=== PATIENT | male | born 1955 | race Caucasian/White ===

== ENCOUNTER 2017-07-08 07:18 | Emergency (ER) | payer BC, MEDICARE ==
[2017-07-08] MEDS ORDERED: NS 0.9% 1000 ML* 1,000 ML IV ONE (07:37)
[2017-07-08] MEDS ORDERED: Ketorolac INJ* 30 MG/ML 1 ML VIAL IV ONE (07:37)
[2017-07-08] MEDS ORDERED: Ondansetron INJ* 2 MG/ML VIAL IV ONE (07:38)
[2017-07-08 08:24] LABS: Hematocrit 42 % (42-52); Hemoglobin 13.9 g/dl (14.0-18.0); Mean Corpuscular HGB Conc 33 g/dl (31-36); Mean Corpuscular Hemoglobin 29 pg (27-31); Mean Corpuscular Volume 88 fL (80-94); Mean Platelet Volume 10 um3 (7.4-10.4); Red Blood Count 4.84 10^6/ul (4.0-5.4); Red Cell Distribution Width 15 % (10.5-15); White Blood Count 10.9 10^3/ul (3.5-10.8)
[2017-07-08 08:32] LABS: ALT 13 U/L (7-52); AST 13 U/L (13-39); Albumin 4.3 g/dL (3.2-5.2); Alkaline Phosphatase 124 U/L (34-104); Anion Gap 8 mmol/L (2-11); BUN/Creatinine Ratio 17.4 (8-20); Blood Urea Nitrogen 15 mg/dL (6-24); C Reactive Protein < 1.00 mg/L (< 5.00); CO2 Carbon Dioxide 28 mmol/L (22-32); Calcium 9.8 mg/dL (8.6-10.3); Chloride 102 mmol/L (101-111); Creatine Kinase 95 U/L (10-223); EGFR African American 115.5 (>60); EGFR Non-African American 89.8 (>60); Globulin 2.9 g/dL (2-4); Glucose 178 mg/dL (70-100); Potassium 3.2 mmol/L (3.5-5.0); Sodium 138 mmol/L (133-145); Total Protein 7.2 g/dL (6.4-8.9)
--- NOTE | 2017-07-08 08:35 | RAD ---
CLINICAL HISTORY: Left flank pain. Relevant surgical history includes appendectomy. COMPARISON: CT abdomen pelvis dated February 18, [address] chest abdomen pelvis dated July 20, 2016 TECHNIQUE: Noncontrast CT examination of the abdomen and pelvis from the lung bases through the initial tuberosities. FINDINGS: VISUALIZED LUNG BASES: Pleural-based linear densities are noted in the bilateral lung bases consistent with atelectasis. There is a partially visualized pleural-based nodule at the lateral aspect of the right middle lobe measuring 5 mm. This is unchanged since the July 20, 2016 CT examination. Otherwise the visualized lung bases are grossly clear. There is no pleural effusion. ABDOMEN AND PELVIS: Evaluation of the solid organs and vasculature is limited without intravenous contrast. The liver, spleen and pancreas are grossly normal in appearance. The gallbladder is normal. At the lateral limb of the right adrenal gland there is a 9 mm nodule unchanged since the 1914 CT examination that is incompletely evaluated on this exam. The right kidney is normal in appearance without focal mass, calcification or signs of hydronephrosis. At the lower pole of left kidney there is a stable 4 mm calcified focus unchanged since the previous CT examination. There is no hydronephrosis bilaterally. Evaluation of the gastrointestinal tract is limited without oral contrast. The small and large bowel are not distended. Consistent with the patient's surgical history, there is surgical material at the base of the cecum and the appendix is not seen. There is no gross retroperitoneal or mesenteric lymphadenopathy. The pelvic viscera is normal in appearance. There is mild to moderate calcified atherosclerosis of the abdominal aorta extending into the bilateral iliac arteries. Extending from the visualized lower thoracic spine to the S1 vertebral body there is multilevel transpedicular fixation screws with posterior fixation rods. This has been extended since the 1914 CT examination when there were transpedicular screws only from L2 to the bilateral iliac bones. The hardware causes a mild degree of streak artifact. The prostheses appear to be anatomically aligned. IMPRESSION: 1. Stable nonobstructing renal calculi measuring 4 mm in the left lower pole without identification of obstructing calculus in the left collecting system or ureter. 2. Stable 5 mm pleural-based nodule noted in the lateral aspect of the right middle lobe that is unchanged since the July 20, 2016 CT examination. The morphology, location and stability of this nodule makes it of low clinical concern. 3. Chronic, degenerative and postoperative findings described in the body of the report.
[2017-07-08] MEDS ORDERED: Morphine INJ* 4 MG/ML 1 ML CARPUJECT IV ONE ×2 (08:44→10:02)
[2017-07-08 09:53] LABS: Urine Bacteria Absent (Absent); Urine Bilirubin Negative (Negative); Urine Glucose Negative (Negative); Urine Nitrite Negative (Negative)
[2017-07-08 10:12] VITALS: BP 154/83
--- NOTE | 2017-07-09 08:17 | ED ---
Todd Bhagat Angela, scribed for Boo Montoya MD on 07/08/17 at 0746 . Back Pain - HPI Summary HPI Summary: This pt is a 62 y/o male presenting to [facility] c/o left flank pain since early yesterday. Pt reports he has a history of kidney stones, and this feels like one. He rates his pain 9/10 in severity. His pain is alleviated by rest. Pt denies nausea, vomiting, weakness, numbness, urinary or bowel incontinence. Pt denies any recent cat scan. Allergies: Ceftriaxone. - History of Current Complaint Chief Complaint: EDFlankPain Stated Complaint: LT KIDNEY PAIN Time Seen by Provider: 07/08/17 07:27 Hx Obtained From: Patient Onset/Duration: Lasting Days - 1, Still Present Onset/Duration: Started Days Ago - 1, Still Present Timing: Lasting Days Back Pain Location: Is Discrete @ - left flank Severity Currently: Severe Pain Intensity: 9 Pain Scale Used: 0-10 Numeric Aggravating Symptom(s): Movement Alleviating Symptom(s): Rest Associated Signs And Symptoms: Positive: Flank Pain - left. Negative: Weakness , Numbness, Tingling, Bladder Incontinence, Bowel Incontinence - Allergies/Home Medications Allergies/Adverse Reactions: Allergies Allergy/AdvReac Type Severity Reaction Status Date / Time Ceftriaxone [From Rocephin] Allergy Severe Itching Verified 07/08/17 07:22 Home Medications: Home Medications Aspirin EC Low Dose* [Ecotrin EC Low Dose 81 MG*] 81 mg PO DAILY 07/08/17 [ History Confirmed 07/08/17] BuPROPion XL* [Bupropion XL*] 300 mg PO DAILY 07/08/17 [History Confirmed ] Cyclobenzaprine TAB* [Flexeril 10 MG TAB*] 10 mg PO TID PRN 07/08/17 [History Confirmed 07/08/17] Pregabalin CAP(*) [Lyrica CAP(*)] 100 mg PO TID 07/08/17 [History Confirmed 01/17] Tamsulosin CAP* [Flomax CAP*] 0.4 mg PO DAILY 07/08/17 [History Confirmed ] oxyCODONE SR TAB(*) [Oxycontin(*)] 15 mg PO BID 07/08/17 [History Confirmed 01/17] zzInsulin GLARGINE(*) [zzLantus(*)] 42 units SUBCUT BEDTIME 07/08/17 [History Confirmed 07/08/17] PMH/Surg Hx/FS Hx/Imm Hx Endocrine/Hematology History: Denies: Hx Anticoagulant Therapy, Hx Thyroid Disease Comment Only: Hx Diabetes - iddm Cardiovascular History: Reports: Hx Hypertension - ON MEDS, Other Cardiovascular Problems/Disorders - IDDM Denies: Hx Pacemaker/ICD Respiratory History: Denies: Hx Asthma, Hx Bronchopulmonary Dysplasia, Hx Chronic Bronchitis, Hx Chronic Obstructive Pulmonary Disease (COPD), Hx Cystic Fibrosis, Hx Lung Cancer , Hx Pleural Effusion, Hx Pneumonia, Hx Pulmonary Edema, Hx Pulmonary Embolism, Hx Seasonal Allergies, Hx Sleep Apnea, Other Respiratory Problems/Disorders GI History: Denies: Other GI Disorders History: Reports: Hx Kidney Stones - IN THE PAST Denies: Hx Renal Disease, Other Problems/Disorders Musculoskeletal History: Reports: Hx Arthritis - ALL OVER, Hx Back Problems Denies: Other Musculoskeletal History Sensory History: Reports: Hx Cataracts - [place], Hx Contacts or Glasses - glasses Denies: Hx Hearing Aid Opthamlomology History: Reports: Hx Cataracts - [place], Hx Contacts or Glasses - glasses Neurological History: Reports: Hx Nerve Disease - DIABETIC NEUROPATHY Denies: Hx Dementia, Hx Seizures Psychiatric History: Reports: Hx Anxiety - ON MEDS, Hx Depression - ON MEDS Denies: Hx Substance Abuse - Surgical History Surgery Procedure, Year, and Place: APPENDIX REMOVED Hx Anesthesia Reactions: No Infectious Disease History: No Infectious Disease History: Reports: 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 Denies: Hx Hepatitis, Hx Human Immunodeficiency Virus (HIV), Traveled Outside the [place] in Last 30 Days - Family History Known Family History: Negative: Other - negative anesthesia reaction - Social History Alcohol Use: None Substance Use Type: Reports: None Substance Use Comment - Amount & Last Used: RX OxyContin 80mg qd Hx Tobacco Use: Yes Smoking Status (MU): Current Every Day Smoker Type: Cigarettes Amount Used/How Often: 5-6 cigarettes/day Have You Smoked in the Last Year: Yes Review of Systems Negative: Fever, Chills ENT: Negative Cardiovascular: Negative Negative: Vomiting, Nausea Positive: flank pain - left sided. Negative: incontinence Musculoskeletal: Negative Skin: Negative Neurological: Negative All Other Systems Reviewed And Are Negative: Yes Physical Exam - Summary Physical Exam Summary: VITAL SIGNS: Reviewed. GENERAL: Patient is a well-developed and nourished male who is in distress secondary to pain. HEAD AND FACE: No signs of trauma. No ecchymosis, hematomas or skull depressions. No sinus tenderness. EYES: PERRLA, EOMI x 2, No injected conjunctiva, no nystagmus. EARS: Hearing grossly intact. Ear canals and tympanic membranes are within normal limits. MOUTH: Oropharynx within normal limits. NECK: Supple, trachea is midline, no adenopathy, no JVD, no carotid bruit, no c- spine tenderness, neck with full ROM. CHEST: Symmetric, no tenderness at palpation LUNGS: Clear to auscultation bilaterally. No wheezing or crackles. CVS: Regular rate and rhythm, S1 and S2 present, no murmurs or gallops appreciated. ABDOMEN: Soft, non-tender. No signs of distention. No rebound no guarding, and no masses palpated. Bowel sounds are normal. Left costovertebral tenderness. EXTREMITIES: FROM in all major joints, no edema, no cyanosis or clubbing. NEURO: Alert and oriented x 3. No acute neurological deficits. Speech is normal and follows commands. SKIN: Dry and warm Triage Information Reviewed: Yes Vital Signs On Initial Exam: Initial Vitals Temp Pulse Resp BP Pulse Ox 97.0 F 88 16 154/89 100 07/08/17 07:20 07/08/17 07:20 07/08/17 07:20 07/08/17 07:20 07/08/17 07:20 Vital Signs Reviewed: Yes - [place] Coma Scale Coma Scale Total: 15 Diagnostics - Vital Signs Vital Signs Temp Pulse Resp BP Pulse Ox 07/08/17 07:20 97.0 F 88 16 154/89 100 - Laboratory Lab Results: Lab Results 07/08/17 07/08/17 07/08/17 Range/Units 07:40 07:40 07:40 WBC 10.9 H (3.5-10.8) 10^3/ul RBC 4.84 (4.0-5.4) 10^6/ul Hgb 13.9 L (14.0-18.0) g/dl Hct 42 (42-52) % MCV 88 (80-94) fL MCH 29 (27-31) pg MCHC 33 (31-36) g/dl RDW 15 (10.5-15) % Plt Count 290 (150-450) 10^3/ul MPV 10 (7.4-10.4) um3 Neut % (Auto) 64.9 (38-83) % Lymph % (Auto) 23.5 L (25-47) % Mcminn % (Auto) 8.0 (1-9) % Eos % (Auto) 3.0 (0-6) % Baso % (Auto) 0.6 (0-2) % Absolute Neuts (auto) 7.0 (1.5-7.7) 10^3/ul Absolute Lymphs (auto) 2.6 (1.0-4.8) 10^3/ul Absolute Monos (auto) 0.9 H (0-0.8) 10^3/ul Absolute Eos (auto) 0.3 (0-0.6) 10^3/ul Absolute Basos (auto) 0.1 (0-0.2) 10^3/ul Absolute Nucleated RBC 0 10^3/ul Nucleated RBC % 0 Sodium 138 (133-145) mmol/L Potassium 3.2 L (3.5-5.0) mmol/L Chloride 102 (101-111) mmol/L Carbon Dioxide 28 (22-32) mmol/L Anion Gap 8 (2-11) mmol/L BUN 15 (6-24) mg/dL Creatinine 0.86 (0.67-1.17) mg/dL Est GFR ( Amer) 115.5 (>60) Est GFR (Non-Af Amer) 89.8 (>60) BUN/Creatinine Ratio 17.4 (8-20) Glucose 178 H (70-100) mg/dL Lactic Acid 2.4 H* (0.5-2.0) mmol/L Calcium 9.8 (8.6-10.3) mg/dL Total Bilirubin 0.40 (0.2-1.0) mg/dL AST 13 (13-39) U/L ALT 13 (7-52) U/L Alkaline Phosphatase 124 H (34-104) U/L Total Creatine Kinase 95 (10-223) U/L C-Reactive Protein < 1.00 (< 5.00) mg/L Total Protein 7.2 (6.4-8.9) g/dL Albumin 4.3 (3.2-5.2) g/dL Globulin 2.9 (2-4) g/dL Albumin/Globulin Ratio 1.5 (1-3) Urine Color Urine Appearance Urine pH (5-9) Ur Specific [place] (1.010-1.030) Urine Protein (Negative) Urine Ketones (Negative) Urine Blood (Negative) Urine Nitrate (Negative) Urine Bilirubin (Negative) Urine Urobilinogen (Negative) Ur Leukocyte Esterase (Negative) Urine WBC (Auto) (Absent) Urine RBC (Auto) (Absent) Ur Squamous Epith Cells (Absent) Urine Bacteria (Absent) Urine Glucose (Negative) 07/08/17 Range/Units 08:50 WBC (3.5-10.8) 10^3/ul RBC (4.0-5.4) 10^6/ul Hgb (14.0-18.0) g/dl Hct (42-52) % MCV (80-94) fL MCH (27-31) pg MCHC (31-36) g/dl RDW (10.5-15) % Plt Count (150-450) 10^3/ul MPV (7.4-10.4) um3 Neut % (Auto) (38-83) % Lymph % (Auto) (25-47) % Mcminn % (Auto) (1-9) % Eos % (Auto) (0-6) % Baso % (Auto) (0-2) % Absolute Neuts (auto) (1.5-7.7) 10^3/ul Absolute Lymphs (auto) (1.0-4.8) 10^3/ul Absolute Monos (auto) (0-0.8) 10^3/ul Absolute Eos (auto) (0-0.6) 10^3/ul Absolute Basos (auto) (0-0.2) 10^3/ul Absolute Nucleated RBC 10^3/ul Nucleated RBC % Sodium (133-145) mmol/L Potassium (3.5-5.0) mmol/L Chloride (101-111) mmol/L Carbon Dioxide (22-32) mmol/L Anion Gap (2-11) mmol/L BUN (6-24) mg/dL Creatinine (0.67-1.17) mg/dL Est GFR ( Amer) (>60) Est GFR (Non-Af Amer) (>60) BUN/Creatinine Ratio (8-20) Glucose (70-100) mg/dL Lactic Acid (0.5-2.0) mmol/L Calcium (8.6-10.3) mg/dL Total Bilirubin (0.2-1.0) mg/dL AST (13-39) U/L ALT (7-52) U/L Alkaline Phosphatase (34-104) U/L Total Creatine Kinase (10-223) U/L C-Reactive Protein (< 5.00) mg/L Total Protein (6.4-8.9) g/dL Albumin (3.2-5.2) g/dL Globulin (2-4) g/dL Albumin/Globulin Ratio (1-3) Urine Color Yellow Urine Appearance Clear Urine pH 5.0 (5-9) Ur Specific [place] 1.008 L (1.010-1.030) Urine Protein Negative (Negative) Urine Ketones Negative (Negative) Urine Blood 1+ H (Negative) Urine Nitrate Negative (Negative) Urine Bilirubin Negative (Negative) Urine Urobilinogen Negative (Negative) Ur Leukocyte Esterase Trace H (Negative) Urine WBC (Auto) Trace(0-5/hpf) (Absent) Urine RBC (Auto) Trace(0-2/hpf) (Absent) Ur Squamous Epith Cells Present H (Absent) Urine Bacteria Absent (Absent) Urine Glucose Negative (Negative) Result Diagrams: 07/08/17 07:40 07/08/17 07:40 Lab Statement: Any lab studies that have been ordered have been reviewed, and results considered in the medical decision making process. - CT Abdomen/Pelvis CT CT Interpretation: Positive (See Comments) - IMPRESSION: 1. Stable nonobstructing renal calculi measuring 4 mm in the left lower pole without identification of obstructing calculus in the left collecting system or ureter. 2. Stable 5 mm pleural-based nodule noted in the lateral aspect of the right middle lobe that is unchanged since the July 20, 2016 CT examination The morphology, location and stability of this nodule makes it of low clinical concern. 3. Chronic, degenerative and postoperative findings described in the body of the report. ED physician has reviewed this radiology report and agrees. CT Interpretation Completed By: Radiologist - EKG 0748 Cardiac Rate: NL EKG Rhythm: Sinus Rhythm - at 83 bpm EKG Interpretation: No ST elevation. Normal axis. Re-Evaluation - Re-Evaluation First Eval Re-Evaluation Time: 10:24 Comment: I reviewed the CT and lab results with the pt. Back Pain Course/Dx - Course Assessment/Plan: This pt is a 62 y/o male presenting to [facility] c/o left flank pain since early yesterday. Pt reports he has a history of kidney stones, and this feels like one. He rates his pain 9/10 in severity. His pain is alleviated by rest. Pt denies nausea, vomiting, weakness, numbness, urinary or bowel incontinence. Pt denies any recent cat scan. Allergies: Ceftriaxone. Test results show WBC of 10.9, potassium of 3.9, for which the pt was given potassium chloride, glucose of 178, lactic acid of 2.4. US is negative for UTI. Abdomen/pelvis CT shows 1. Stable nonobstructing renal calculi measuring 4 mm in the left lower pole without identification of obstructing calculus in the left collecting system or ureter. 2. Stable 5 mm pleural-based nodule noted in the lateral aspect of the right middle lobe that is unchanged since the July 20, 2016 CT examination The morphology, location and stability of this nodule makes it of low clinical concern. 3. Chronic, degenerative and postoperative findings described in the body of the report. Chest XR shows no evidence for acute intrathoracic disease. In the ED course, the pt was given IV morphine and Toradol for the pain. After these medications the symptoms improved. He will be discharged home with a prescription for oxycodone and with follow up from his PCP. Pt is hemodynamically stable, alert and oriented x3. - Diagnoses Differential Diagnosis/HQI/PQRI: Positive: Renal Colic, Strain, Sprain Provider Diagnoses: Flank pain Discharge - Discharge Plan Condition: Stable Disposition: HOME Prescriptions: Oxycodone TAB(NF) [Oxycodone HCl 10 MG] 10 mg PO Q6H PRN #6 tab MDD 4 PRN Reason: Pain Patient Education Materials: Flank Pain (ED) Referrals: Oanh Whitaker MD [Primary Care Provider] - Additional Instructions: Please follow up with your primary care provider. RETURN TO THE ED FOR ANY WORSENING OR NEW SYMPTOMS. The documentation as recorded by the Todd hammond Angela accurately reflects the service I personally performed and the decisions made by me, Boo Montoya MD.
== END 2017-07-08 10:58 | disposition home or self-care (01) ==
LOC: ED 07:18
DX: R10.9 Unspecified abdominal pain (principal); N20.0 Calculus of kidney; F17.210 Nicotine dependence, cigarettes, uncomplicated; I10 Essential (primary) hypertension; E11.8 Type 2 diabetes mellitus with unspecified complications; Z79.4 Long term (current) use of insulin; F41.9 Anxiety disorder, unspecified; F32.9 Major depressive disorder, single episode, unspecified
CPT/HCPCS: 36415; 74176; 80053; 81003; 81015; 82550; 83605; 85025; 86140; 87040; 87086; 93005; 99283; J1885; J2270; J2405

== ENCOUNTER 2017-09-13 17:51 | Inpatient (IN) | payer BC, MEDICARE ==
[2017-09-13] MEDS ORDERED: LORazepam INJ* 2 MG/ML 1 ML VIAL IV ONE (18:13)
[2017-09-13 18:23] LABS: ABS Basophils 0.1 10^3/ul (0-0.2); ABS Eosinophils 0.3 10^3/ul (0-0.6); ABS Lymphocytes 3.2 10^3/ul (1.0-4.8); ABS Monocytes 1.3 10^3/ul (0-0.8); ABS Neutrophils 15.1 10^3/ul (1.5-7.7); ABS Nucleated RBC 0 10^3/ul; Eosinophil % 1.4 % (0-6); Hematocrit 41 % (42-52); Hemoglobin 13.8 g/dl (14.0-18.0); Mean Corpuscular HGB Conc 33 g/dl (31-36); Mean Corpuscular Hemoglobin 29 pg (27-31); Mean Corpuscular Volume 87 fL (80-94); Mean Platelet Volume 10 um3 (7.4-10.4); Nucleated Red Blood Cells % 0; Platelet Count 303 10^3/ul (150-450); Red Blood Count 4.74 10^6/ul (4.0-5.4); Red Cell Distribution Width 15 % (10.5-15); White Blood Count 19.9 10^3/ul (3.5-10.8)
[2017-09-13 18:28] LABS: INR 0.9 (0.77-1.02)
[2017-09-13 18:38] LABS: EGFR Non-African American 12.5 (>60)
[2017-09-13] MEDS ORDERED: Dextrose 50% Syringe 50 ML* 25 GM/50 ML SYRINGE ONE (18:46)
[2017-09-13] MEDS: Dextrose 50% Syringe 50 ML* 25 GM/50 ML SYRINGE IV PUSH ONE ×2 (18:57→19:40)
[2017-09-13] MEDS ORDERED: NS 0.9% 1000 ML* 2,000 ML IV ONE (18:58)
--- NOTE | 2017-09-13 19:07 | RAD ---
Indication: Altered mental status. Comparison: July 08, 2017 CT abdomen. July 20, 2016 CT chest. Technique: Upright AP 1834 hours Report: Costochondral calcifications noted. Mild alveolar consolidation at the RIGHT lower lung zone suspicious for pneumonia given absence of volume loss to favor atelectasis. Negative for pleural effusions or pneumothorax. Cardiomegaly. Unremarkable central pulmonary vasculature and mediastinal contours. Anterior cervical fusion hardware and multilevel thoracic lumbar spine fixation rods and pedicle screws. IMPRESSION: Inflammatory infiltrate at the RIGHT lung base. Cardiomegaly without evidence for pulmonary edema.
[2017-09-13] MEDS ORDERED: Levofloxacin 750 MG IVPREMIX(* 750 MG/150 ML BAG IVPB ONE (19:39)
[2017-09-13] MEDS ORDERED: Al Hydrox/Mg Hydrox/Simet LIQ* 30 ML UDC PO PRN (20:15)
[2017-09-13] MEDS ORDERED: Morphine INJ* 2 MG/ML 1 ML CARPUJECT IV PRN (20:15)
[2017-09-13] MEDS ORDERED: Ondansetron INJ* 2 MG/ML VIAL IV PRN (20:15)
[2017-09-13] MEDS ORDERED: Dextrose 50% Syringe 50 ML* 25 GM/50 ML SYRINGE IV PUSH PRN (20:25)
[2017-09-13] MEDS ORDERED: Vancomycin(*) 1,000 MG in NS 0.9% 250 ML* 250 ML IVPB ONE (20:25)
[2017-09-13] MEDS ORDERED: NS 0.9% 1000 ML* 1,000 ML IV ONE (20:29)
[2017-09-13] MEDS ORDERED: Dextrose 50% Syringe 50 ML* 25 GM/50 ML SYRINGE IV PUSH ONE (20:31)
[2017-09-13 20:54] LABS: Urine Appearance Cloudy; Urine Blood Negative (Negative); Urine Color Amber; Urine Ketones Trace (Negative); Urine Protein 2+(100 mg/dL) (Negative); Urine Specific Gravity 1.018 (1.010-1.030); Urine Urobilinogen Negative (Negative)
[2017-09-13] MEDS ORDERED: Vancomycin(*) 0 MG in NS 0.9% 250 ML* 250 ML IVPB SCH (21:00)
[2017-09-13] MEDS ORDERED: D5W 1/2 NS 1000 ML BAG* 1,000 ML IV SCH ×3 (21:00→23:08)
--- NOTE | 2017-09-13 21:20 | RAD ---
Indication: Altered mental status. Possible sepsis. Comparison: July 21, 2016 Technique: Noncontrast CT vertex of skull through foramen magnum. Report: The sulci, ventricles, and basal cisterns are normal for age. Walker matter white matter differentiation is preserved without evidence for edema. No intra or extra axial hemorrhage, mass, or fluid collection detected. The orbits are remarkable for bilateral proptosis without change. Unremarkable calvarium and skull base. Unremarkable scalp. 2.5 cm mucous retention cyst or polyp at the floor of the RIGHT maxillary sinus. Negative for paranasal sinus fluid levels. Clear mastoid air spaces. IMPRESSION: 1. No CT abnormality of the brain. 2. Bilateral proptosis without change.
--- NOTE | 2017-09-13 21:31 | RAD ---
INDICATION: Altered mental status. Possible sepsis. LEFT lower quadrant pain. Post appendectomy. COMPARISON: July 08, 2017 CT. TECHNIQUE: Multidetector CT images were obtained from the lung bases to the ischial tuberosities. Evaluation of the viscera is limited without IV contrast. Multiplanar reformation. REPORT: Unchanged 5 mm subpleural nodule at the lateral segment of the RIGHT middle lobe compared with a chest CT from March 19, [address] abnormality of the unenhanced liver, gallbladder, pancreas, spleen. Severe distention of the stomach with gas and liquid food stuff. Negative for CT abnormality of the small bowel loops. Post appendectomy. Unremarkable colon. Negative for ascites, free air, hernias. Thickened limbs of the adrenal glands consistent with adrenal hyperplasia. Nonobstructing 2 mm stone at the midpole of the LEFT kidney. No suspicious renal lesions or hydronephrosis. Unremarkable nondilated ureters. Catheterized decompressed urinary bladder. Symmetric seminal vesicles. Negative for thoracic lymphadenopathy. Atherosclerotic calcification of normal diameter abdominal aorta. 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 Long segment thoracic lumbar sacral spine fusion and decompressive laminectomy. Negative for suspicious focal osseous lesions. IMPRESSION: 1. Significant gastric distention without visualized obstructing lesion; consider gastroparesis. 2. Post appendectomy. 3. Negative for obstructive uropathy. 2 mm stone midpole LEFT kidney. 4. No abdominal pelvic acute inflammatory process or abscess collection evident.
--- NOTE | 2017-09-13 21:53 | ED ---
Ines Bhagat Julia, scribed for Jed Lennon MD on 09/13/17 at 1910 . Complex/Multi-Sys Presentation - HPI Summary HPI Summary: This patient is a 62 year old M presenting to [facility] accompanied by his because she is concerned about his current mental status. She reports that he has had multiple infections recently, currently treated by antibiotics, where he has unusual behavior including incoherent speech and yelling. She states he has had difficulty walking. She states that he consistenly moves his legs at baseline. Patient reports entire back pain and rib pain. The patient rates the pain 9/10 in severity. Symptoms aggravated by sitting to standing. - History Of Current Complaint Chief Complaint: EDAltMentalStatus Time Seen by Provider: 09/13/17 18:02 Hx Obtained From: Patient, Family/Superintendent Sanitation Onset/Duration: Still Present Timing: Constant Location: Pain At: - back and ribs Aggravating Factor(s): sitting to standing Associated Signs And Symptoms: Positive: Other - unusual behavior including incoherent speech and yelling, and difficulty walking Related History: Recent Illness - infections - Allergies/Home Medications Allergies/Adverse Reactions: Allergies Allergy/AdvReac Type Severity Reaction Status Date / Time ceftriaxone Allergy Severe Itching Verified 09/13/17 21:52 Home Medications: Home Medications Multivitamins/Minerals TAB* [Theragran/minerals TAB*] 1 tab PO DAILY 09/13/17 [ History Confirmed 09/13/17] PMH/Surg Hx/FS Hx/Imm Hx Endocrine/Hematology History: Denies: Hx Anticoagulant Therapy, Hx Thyroid Disease Comment Only: Hx Diabetes - iddm Cardiovascular History: Reports: Hx Hypertension - ON MEDS, Other Cardiovascular Problems/Disorders - IDDM Denies: Hx Pacemaker/ICD Respiratory History: Denies: Hx Asthma, Hx Bronchopulmonary Dysplasia, Hx Chronic Bronchitis, Hx Chronic Obstructive Pulmonary Disease (COPD), Hx Cystic Fibrosis, Hx Lung Cancer , Hx Pleural Effusion, Hx Pneumonia, Hx Pulmonary Edema, Hx Pulmonary Embolism, Hx Seasonal Allergies, Hx Sleep Apnea, Other Respiratory Problems/Disorders GI History: Denies: Other GI Disorders History: Reports: Hx Kidney Stones - IN THE PAST Denies: Hx Renal Disease, Other Problems/Disorders Musculoskeletal History: Reports: Hx Arthritis - ALL OVER, Hx Back Problems Denies: Other Musculoskeletal History Sensory History: Reports: Hx Cataracts - [place], Hx Contacts or Glasses - glasses Denies: Hx Hearing Aid Opthamlomology History: Reports: Hx Cataracts - [place], Hx Contacts or Glasses - glasses Neurological History: Reports: Hx Nerve Disease - DIABETIC NEUROPATHY Denies: Hx Dementia, Hx Seizures Psychiatric History: Reports: Hx Anxiety - ON MEDS, Hx Depression - ON MEDS Denies: Hx Substance Abuse - Surgical History Surgery Procedure, Year, and Place: APPENDIX REMOVED Hx Anesthesia Reactions: No Infectious Disease History: No Infectious Disease History: Reports: 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 Denies: Hx Hepatitis, Hx Human Immunodeficiency Virus (HIV), Traveled Outside the [place] in Last 30 Days - Family History Known Family History: Negative: Other - negative anesthesia reaction - Social History Alcohol Use: None Substance Use Type: Reports: None Substance Use Comment - Amount & Last Used: RX OxyContin 80mg qd Hx Tobacco Use: Yes Smoking Status (MU): Current Every Day Smoker Type: Cigarettes Amount Used/How Often: 5-6 cigarettes/day Have You Smoked in the Last Year: Yes Review of Systems Positive: Myalgia - back and rib pain, Other - difficulty walking Positive: Other - unusal behavior, yelling, speech changes All Other Systems Reviewed And Are Negative: Yes Physical Exam - Summary Physical Exam Summary: Appearance: The patient is well-nourished in no acute distress and in no acute pain. Skin: The skin is warm and dry and skin color reflects adequate perfusion. HEENT: The head is normocephalic and atraumatic. The pupils are equal and reactive. The conjunctivae are clear and without drainage. Nares are patent and without drainage. Mouth reveals moist mucous membranes and the throat is without erythema and exudate. The external ears are intact. The ear canals are patent and without drainage. The tympanic membranes are intact. Neck: the neck is supple with full range of motion and non-tender. There are no carotid bruits. There is no neck vein distension. Respiratory: Chest is non-tender. Lungs are clear to auscultation and breath sounds are symmetrical and equal. Cardiovascular: Heart is regular rate and rhythm. There is no murmur or rub auscultated. There is no peripheral edema and pulses are symmetrical and equal. Abdomen: The abdomen is soft and non-tender. There are normal bowel sounds heard in all four quadrants and there is no organomegaly palpated. Musculoskeletal: There is no back tenderness noted. Extremities are non-tender with full range of motion. There is good capillary refill. There is no peripheral edema or calf tenderness elicited. Neurological: Patient is alert and oriented to person, place and time. The patient has symmetrical motor strength in all four extremities. Cranial nerves are grossly intact. Deep tendon reflexes are symmetrical and equal in all four extremities. Psychiatric: The patient is anxious but cooperative. Triage Information Reviewed: Yes Vital Signs On Initial Exam: Initial Vitals Temp Pulse Resp BP Pulse Ox 97.8 F 103 18 132/116 96 09/13/17 17:56 09/13/17 17:56 09/13/17 17:56 09/13/17 17:56 09/13/17 17:56 Vital Signs Reviewed: Yes Diagnostics - Vital Signs Vital Signs Temp Pulse Resp BP Pulse Ox 09/13/17 19:00 92 14 101/80 95 09/13/17 18:54 93 13 85/56 96 09/13/17 18:52 94 15 71/40 94 09/13/17 18:47 13 82/51 09/13/17 18:42 13 66/47 09/13/17 18:30 102 17 97/82 93 09/13/17 18:23 18 09/13/17 18:00 101 95 09/13/17 17:59 103/51 09/13/17 17:56 97.8 F 103 18 132/116 96 - Laboratory Lab Results: Lab Results 09/13/17 09/13/17 09/13/17 Range/Units 18:05 18:05 18:05 WBC 19.9 H (3.5-10.8) 10^3/ul RBC 4.74 (4.0-5.4) 10^6/ul Hgb 13.8 L (14.0-18.0) g/dl Hct 41 L (42-52) % MCV 87 (80-94) fL MCH 29 (27-31) pg MCHC 33 (31-36) g/dl RDW 15 (10.5-15) % Plt Count 303 (150-450) 10^3/ul MPV 10 (7.4-10.4) um3 Neut % (Auto) 75.4 (38-83) % Lymph % (Auto) 16.0 L (25-47) % [place] % (Auto) 6.5 (1-9) % Eos % (Auto) 1.4 (0-6) % Baso % (Auto) 0.7 (0-2) % Absolute Neuts (auto) 15.1 H (1.5-7.7) 10^3/ul Absolute Lymphs (auto) 3.2 (1.0-4.8) 10^3/ul Absolute Monos (auto) 1.3 H (0-0.8) 10^3/ul Absolute Eos (auto) 0.3 (0-0.6) 10^3/ul Absolute Basos (auto) 0.1 (0-0.2) 10^3/ul Absolute Nucleated RBC 0 10^3/ul Nucleated RBC % 0 INR (Anticoag Therapy) 0.90 (0.77-1.02) Sodium 135 (133-145) mmol/L Potassium 3.6 (3.5-5.0) mmol/L Chloride 98 L (101-111) mmol/L Carbon Dioxide 22 (22-32) mmol/L Anion Gap 15 H (2-11) mmol/L BUN 27 H (6-24) mg/dL Creatinine 4.76 H (0.67-1.17) mg/dL Est GFR ( Amer) 16.0 (>60) Est GFR (Non-Af Amer) 12.5 (>60) BUN/Creatinine Ratio 5.7 L (8-20) Glucose 123 H (70-100) mg/dL POC Glucose (mg/dL) (70-100) mg/dL Lactic Acid (0.5-2.0) mmol/L Calcium 9.3 (8.6-10.3) mg/dL Total Bilirubin 0.50 (0.2-1.0) mg/dL AST 16 (13-39) U/L ALT 15 (7-52) U/L Alkaline Phosphatase 117 H (34-104) U/L Troponin I 0.01 (<0.04) ng/mL Total Protein 7.2 (6.4-8.9) g/dL Albumin 4.4 (3.2-5.2) g/dL Globulin 2.8 (2-4) g/dL Albumin/Globulin Ratio 1.6 (1-3) TSH 9.09 H (0.34-5.60) mcIU/mL 09/13/17 09/13/17 Range/Units 18:05 18:45 WBC (3.5-10.8) 10^3/ul RBC (4.0-5.4) 10^6/ul Hgb (14.0-18.0) g/dl Hct (42-52) % MCV (80-94) fL MCH (27-31) pg MCHC (31-36) g/dl RDW (10.5-15) % Plt Count (150-450) 10^3/ul MPV (7.4-10.4) um3 Neut % (Auto) (38-83) % Lymph % (Auto) (25-47) % [place] % (Auto) (1-9) % Eos % (Auto) (0-6) % Baso % (Auto) (0-2) % Absolute Neuts (auto) (1.5-7.7) 10^3/ul Absolute Lymphs (auto) (1.0-4.8) 10^3/ul Absolute Monos (auto) (0-0.8) 10^3/ul Absolute Eos (auto) (0-0.6) 10^3/ul Absolute Basos (auto) (0-0.2) 10^3/ul Absolute Nucleated RBC 10^3/ul Nucleated RBC % INR (Anticoag Therapy) (0.77-1.02) Sodium (133-145) mmol/L Potassium (3.5-5.0) mmol/L Chloride (101-111) mmol/L Carbon Dioxide (22-32) mmol/L Anion Gap (2-11) mmol/L BUN (6-24) mg/dL Creatinine (0.67-1.17) mg/dL Est GFR ( Amer) (>60) Est GFR (Non-Af Amer) (>60) BUN/Creatinine Ratio (8-20) Glucose (70-100) mg/dL POC Glucose (mg/dL) 57 L (70-100) mg/dL Lactic Acid 3.6 H* (0.5-2.0) mmol/L Calcium (8.6-10.3) mg/dL Total Bilirubin (0.2-1.0) mg/dL AST (13-39) U/L ALT (7-52) U/L Alkaline Phosphatase (34-104) U/L Troponin I (<0.04) ng/mL Total Protein (6.4-8.9) g/dL Albumin (3.2-5.2) g/dL Globulin (2-4) g/dL Albumin/Globulin Ratio (1-3) TSH (0.34-5.60) mcIU/mL Result Diagrams: 09/13/17 18:05 09/13/17 18:05 Lab Statement: Any lab studies that have been ordered have been reviewed, and results considered in the medical decision making process. - Radiology CXR Radiology Interpretation Completed By: Radiologist - Inflammatory infiltrate at the RIGHT lung base. Cardiomegaly without evidence for pulmonary edema. ED Physician has reviewed this report. - CT Brain CT Interpretation Completed By: Radiologist - 1. No CT abnormality of the brain. 2. Bilateral proptosis without change. ED Physician has reviewed this report. A/P CT Interpretation Completed By: Radiologist - 1. Significant gastric distention without visualized obstructing lesion; consider gastroparesis. 2. Post appendectomy. 3. Negative for obstructive uropathy. 2 mm stone midpole LEFT kidney. 4. No abdominal pelvic acute inflammatory process or abscess collection evident. ED Physician has reviewed this report. - EKG 1811 Cardiac Rate: Tachycardia - at 100 BPM EKG Rhythm: Sinus Tachycardia Re-Evaluation - Re-Evaluation 1 Re-Evaluation Time: 18:45 Comment: Pt is diaphoretic and hypotensive Complex Multi-Symp Course/Dx Course Of Treatment: Mr. Schmid presented with his spouse who was concerned that he might be getting septic again. He was confused at home and this has happened in the past with UTIs. He was agitated and anxious here and not able to give a very good history but he was oriented. He was found to have pneumonia and septic shock for which he was given antibiotics and IV fluids. He is being admitted by the hospitalist service. - Diagnoses Provider Diagnoses: Pneumonia, Septic shock - Physician Notifications Discussed Care Of Patient With: Ninfa Patterson - hospitalist Time Discussed With Above Provider: 19:42 Instructed by Provider To: Admit As Inpatient - Critical Care Time Critical Care Time: 30-74 min Discharge - Discharge Plan Condition: Stable Disposition: ADMITTED TO [facility] Referrals: Oanh Whitaker MD [Primary Care Provider] - The documentation as recorded by the Ines hammond Julia accurately reflects the service I personally performed and the decisions made by me, Jed Lennon MD.
[2017-09-13] MEDS ORDERED: Vancomycin per Pharmacy* NOTE FOLLOW UP PRN (21:55)
--- NOTE | 2017-09-13 22:49 | HP ---
CC: Oanh Whitaker MD * HISTORY AND PHYSICAL: DATE OF ADMISSION: 09/13/17 TIME OF EVALUATION: 1999. PRIMARY CARE PHYSICIAN: Oanh Whitaker MD CHIEF COMPLAINT: Altered mental status. HISTORY OF PRESENT ILLNESS: This is a 62-year-old male with a past medical history of diabetes and hypertension, who had a prolonged hospitalization back in July for severe sepsis thought to be secondary to a viral infection. The patient is brought in by his when he began becoming altered, started mumbling, was wobbly, and became argumentative. She states this is how he was the last time when he got really sick. She states that he has been coughing and having congestion for the past several weeks. She has been trying to get him to see the doctor but he has refused. She states that he does not always tell her everything that is going on and tried to get an accurate history from him, but he is able to say he has no vomiting or diarrhea. He does have some left-sided abdominal pain. He has some bilateral hip pain. He has had some issues with his great toe. His states that he tries to get her to cut his toe nails but she feels like he needs to go to the doctor to have this done and subsequently has developed problems. The patient states he does have issues with urinary retention. He gets up several times during the night to urinate. They deny any changes to the medications; however, the list of medications is different from the list that he was discharged on in July and she does not feel that anything was changed from them, it is other than he is no longer taking the OxyContin. The patient denies any chest pain or shortness of breath. Otherwise, limited review of systems in the emergency room. The patient had labs. He was agitated and was given 1 mg of Ativan, became hypotensive. He received 2 L of fluid. He was also noted to be hypoglycemic, had received an amp of D50 and has been persistently hypoglycemic and D5 drip has been started. He was also given Levaquin as well. PAST MEDICAL HISTORY: 1. Recent admission in 2016 for severe sepsis with septic shock due to a viral infection, hospital course complicated by hyperactive delirium with toxic metabolic encephalopathy with acute renal failure and respiratory failure and pulmonary edema. 2. History of chronic pain requiring narcotics. 3. History of multiple left knee surgeries, total of 8 knee surgeries, status post knee replacement in the past with chronic group B strep infection, on chronic treatment with doxycycline. 4. Status post right knee arthroplasty in the past. 5. Bilateral cataract surgery in the past. 6. History of lumbar laminectomy with warren placement. 7. History of vasectomy. 8. Appendectomy. 9. Anterior cervical diskectomy. 10. Type 2 diabetes. 11. Hypertension. 12. Hyperlipidemia. 13. Anxiety and depression. MEDICATIONS: Per the 's list: 1. Multivitamin 1 tab p.o. daily. 2. Cymbalta 60 mg p.o. b.i.d. 3. Doxycycline 100 mg p.o. b.i.d. 4. Cyclobenzaprine 10 mg p.o. t.i.d. as needed. 5. Bupropion XL 300 mg p.o. daily. 6. Atorvastatin 40 mg p.o. daily. 7. Aspirin 81 mg daily. 8. Lantus 42 units at bedtime. 9. Oxycodone 10 mg q.6 hours as needed. 10. Tamsulosin 0.4 mg p.o. daily. 11. Lyrica 100 mg p.o. t.i.d. 12. Lisinopril 10 mg p.o. daily. 13. Lispro sliding scale. ALLERGIES: ceftriaxon develops itching. FAMILY HISTORY: His father at age 62 of emphysema. SOCIAL HISTORY: The patient lives at home with his , Scarlet, who is his health care proxy. He is still smoking about a pack a day for the past 35 years. No alcohol use. No illicit drug use. 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 He has 3 children and 4 step children. His code status is full code. REVIEW OF SYSTEMS: Limited and as mentioned in the HPI. PHYSICAL EXAMINATION GENERAL: The patient is somnolent and upper extremity twitching with some agitation, but does awake and can answer some questions approximately. His is at the bedside. VITAL SIGNS: Temp 97.8, pulse rate 90, respiratory rate 13, oxygen saturation 97% on 3 L, and blood pressure 102/60. HEENT: Head is normocephalic. Pupils are pinpoint and sluggish. Anicteric. Oropharynx: Mucous membranes are dry. NECK: Supple. No lymphadenopathy. RESPIRATORY: Diminished breath sounds. No wheezing, rhonchi, or rales. No increased work of breathing. CARDIAC: Regular rate and rhythm with soft systolic murmur heard throughout. ABDOMEN: Morbidly obese, positive bowel sounds. Mild distention. Some tenderness in the left lower quadrant region. EXTREMITIES: +1 pretibial edema. He has a bandage that was unwrapped over his left great toe with the nail removed with some ulceration and surrounding erythema. NEUROLOGIC: He is alert and oriented x1. He is oriented to himself only. No gross focal neurologic deficits. DIAGNOSTIC STUDIES/LAB DATA: White count 19.9, hemoglobin 13.8, hematocrit 41 , platelets 303. INR is 0.9. Sodium 135, potassium 3.6, chloride 98, bicarb 22 , BUN 27, creatinine 4.76, glucose 123, lactic acid 3.6. TSH is 9.09. Radiographic data: Chest x-ray shows inflammatory infiltrate at the right lung base, cardiomegaly without evidence of pulmonary edema. EKG shows sinus tachycardia, prolonged QTc of 498. ASSESSMENT AND PLAN: This is a 62-year-old male with a past medical history of chronic pain on chronic antibiotics due to chronic repeated infection in his knee and diabetes, who presents to the emergency room with delirium and altered mental status. 1. Delirium. Assessment: The patient's etiology is most likely infectious with his white count. There is infiltrate on his chest x-ray. I am waiting his urinalysis. If he has obstructive uropathy, we do not have Urology coverage, he will need to be transferred out to another facility. The other concern is that his toe is red and inflamed, could be contributing to his sepsis. He also has these recurrent left knee issues which may be causing bacteremia, although he has been on doxycycline. Plan: We will also give him a dose of vanc in addition to his Levaquin. We will give him a liter of fluid and we will follow up on his urine and get an abdomen and pelvis CT to rule out any stone or pathology including diverticulitis. 2. Acute kidney injury. The patient with significant kidney injury, most likely prerenal in the setting of his sepsis. Plan: We will place a Tomlinson to monitor his I's and O's. Make sure it is not postobstructive, and renally dose his meds. I am going to hold his Cymbalta and Wellbutrin. We will decrease his Lyrica to daily and discontinue his lisinopril as well and follow his renal function in the morning. 3. Hypoglycemia. Assessment: Most likely driven by his sepsis and insulin accumulating from his renal failure. Plan: We will place him on D5 half-normal saline for now. Monitor his glucose q.1 hour and hold his Lantus and lispro for now. CHRONIC MEDICAL PROBLEMS: 1. With his chronic pain, I will hold off oral agents for now in the setting of his delirium, we will place him on Dilaudid as needed. 2. Hyperlipidemia. Continue him on the Lipitor. 3. Chronic pain. I need to get an official med rec. There seems to be discrepancies, but we will continue his Lyrica at a lower dose, hold the Cymbalta and Wellbutrin, and start him on Dilaudid. 4. Hypertension. As mentioned, hold his lisinopril in the setting of renal failure. 5. FEN. We will place the patient on IV fluids. We will him another liter of fluid in the setting of his hypotension. We will keep him n.p.o. until his nursing swallow and D5 half-normal saline for his hypoglycemia. 6. DVT prophylaxis. The patient scores moderate risk, place him on heparin subcu t.i.d. 7. Code status. Full code. PATIENT TIME: Greater than 60 minutes was spent doing the history and physical and critical care time with his multiple medical problems. More than half the time was spent in direct patient contact. [id number]/CPS #: [id number] TOÑO
[2017-09-13] MEDS: NS 0.9% 1000 ML* 1,000 ML IV SCH (22:58)
[2017-09-13] MEDS: Atorvastatin* 40 MG TAB PO SCH (23:19)
[2017-09-13] MEDS: Heparin VIAL(*) 5000 UNITS/ML VIAL (FIVE THOUSAND) SUBCUT SCH (23:28)
[2017-09-13] MEDS: HYDROmorphone INJ* 1 MG/ML CARPUJECT SYRINGE IV SLOW PU PRN (23:33)
[2017-09-13] MEDS ORDERED: HYDROmorphone INJ* 1 MG/ML CARPUJECT SYRINGE ONE (23:39)
[2017-09-14] MEDS ORDERED: NS 0.9% 1000 ML* 1,000 ML IV ONE ×2 (03:24→06:00)
[2017-09-14] MEDS ORDERED: D5W 1/2 NS 1000 ML BAG* 1,000 ML IV SCH (04:25)
[2017-09-14] MEDS ORDERED: Hydrocortisone INJ* 100 MG VIAL IV SCH (05:00)
[2017-09-14] MEDS: Heparin VIAL(*) 5000 UNITS/ML VIAL (FIVE THOUSAND) SUBCUT SCH ×3 (05:16→21:19)
[2017-09-14 06:18] LABS: Hematocrit 36 % (42-52); Hemoglobin 11.5 g/dl (14.0-18.0); Mean Corpuscular HGB Conc 32 g/dl (31-36); Mean Corpuscular Hemoglobin 29 pg (27-31); Mean Corpuscular Volume 89 fL (80-94); Mean Platelet Volume 10 um3 (7.4-10.4); Platelet Count 204 10^3/ul (150-450); Red Blood Count 4.02 10^6/ul (4.0-5.4); Red Cell Distribution Width 16 % (10.5-15); White Blood Count 26.5 10^3/ul (3.5-10.8)
[2017-09-14 06:31] LABS: EGFR Non-African American 18.6 (>60)
[2017-09-14 07:43] LABS: ABS Basophils 0.1 10^3/ul (0-0.2); ABS Eosinophils 0 10^3/ul (0-0.6); ABS Lymphocytes 0.6 10^3/ul (1.0-4.8); ABS Monocytes 0.3 10^3/ul (0-0.8); ABS Neutrophils 25.5 10^3/ul (1.5-7.7); ABS Nucleated RBC 0 10^3/ul; Eosinophil % 0.1 % (0-6); Lymphocyte % 2.2 % (25-47); Nucleated Red Blood Cells % 0
[2017-09-14] MEDS: NS 0.9% 1000 ML* 1,000 ML IV SCH ×2 (08:42→20:42)
[2017-09-14] MEDS: HYDROmorphone INJ* 1 MG/ML CARPUJECT SYRINGE IV SLOW PU PRN ×4 (08:56→21:16)
[2017-09-14] MEDS: Insulin LISPRO* 1 UNITS UNIT SUBCUT SCH ×6 (09:11→21:19)
--- NOTE | 2017-09-14 09:27 | PN ---
Progress Note - Progress Note Date of Service: 09/14/17 Note: Critical Care Asked to see and assume care of patient while in ICU by Dr Louis. Patient admitted to ICU overnight re RLL pneumonia and sepsis. Patient has had several weeks where he reports cough, congestion and sinus drainage Was given IV fluids, Vanco+Levaquin, and "stress dose" Solucortef Patient has a history of protracted hospitalization in July with viral syndrome/pneumonia, sepsis, respiratory failure, pulmonary edema, agitated delirium, and acute renal failure. Presently patient's main complaint relates to dry mouth and wanting to drink liquid PMH includes: DM, HTN, chronic pain syndrome with opiate dependence, multiple knee surgeries, cervical discectomy, lumbar laminectomy, bilateral catarracts, anxiety, depression, appendectomy, vasectomy Allergy: ceftriaxone (pruritis) SBP 97-110 MAP 70-80 HR 92-94 reg RR 11-25 SpO2 99 (NC) Skin no diaphoresis, no cyanosis Sclerae anicteric Oral mucosa pink, dry Neck supple, old healed scar base of neck on right Lungs with good air entry, no wheezes Cor RRR no rub, no murmur Abd soft, nontender delgado Ext no edema, no cord, no calf tenderness Bilateral upper extrem PIVs in place Neuro moves all 4 extrems, speech fluent but pressured needing reassurance CXR report indicate RLL infiltrate and mild cardiomegally CT with dilated stomach WBC 26.5 Hgb 11.5 Plt 204 INR 0.9 Lact 1.0 K 4.2 BUN/creat 29.3.37 Gluc 100-150 Influenza negative IMP: Cough, congestion, and sinus drainage with CXR interpreted as demonstrating RLL pneumonia...fairly small. recent protracted hospitalization with exposure to systemic antibiotics puts him at risk for MDR pathogens. Given dilated stomach would wonder if possibly aspirated. Presently not demonstrating any significant difficulty with breathing and hemodynamics appear quite reasonable with normal lactate and mean arterial pressure. Does appear dry (dehydrated) with TOILIA Mild anemia..adequate Hgb Hx DM...controlled Hx HTN Hx recent protracted and complicate hospitalization as briefly outlined above Hx Anxiety and depression Hx chronic pain syndrome with opiate dependence Multiple orthopedic/amber surgeries involving knees and both cervical and lumbar spine PLAN: Add Meropenem to Abx regimen for time being Continue Vanco and Levaquin IV fluids PO ice chips As stabilizes further to advance PO intake Monitor UO closely with indwelling catheter Watch renal indices Monitor oximetry Reassure patient we are working with him and maintain him oriented to his environment Taper steroids as stabilizes Discussed with nursing T>35 min, CCM services rendered
[2017-09-14] MEDS: Meropenem 500MG PREMIX(*) 500 MG/50 ML BAG IV SCH ×2 (09:32→15:42)
[2017-09-14] MEDS: Tamsulosin CAP* 0.4 MG PO SCH (09:32)
[2017-09-14] MEDS: Pregabalin CAP(*) 100 MG PO SCH (09:32)
[2017-09-14] MEDS: Aspirin EC Low Dose* 81 MG TAB.EC PO SCH (09:32)
[2017-09-14] MEDS ORDERED: Dextrose 50% Syringe 50 ML* 25 GM/50 ML SYRINGE IV PUSH PRN (09:55)
[2017-09-14] MEDS ORDERED: HYDROmorphone INJ* 2 MG/ML CARPUJECT SYRINGE ONE (11:37)
[2017-09-14] MEDS: Hydrocortisone INJ* 100 MG VIAL IV SCH ×2 (11:40→20:36)
[2017-09-14] MEDS ORDERED: HYDROmorphone INJ* 2 MG/ML CARPUJECT SYRINGE IV SLOW PU ONE (11:50)
[2017-09-14] MEDS: oxyCODONE SR TAB(*) 15 MG TAB.SR PO SCH ×2 (12:27→20:35)
[2017-09-14] MEDS: DULoxetine DR CAP* 60 MG CAP.DR PO SCH ×2 (12:46→21:18)
[2017-09-14] MEDS: BuPROPion XL* 300 MG TAB.XL PO SCH (13:32)
[2017-09-14] MEDS: Atorvastatin* 40 MG TAB PO SCH (20:35)
[2017-09-14] MEDS ORDERED: Vancomycin(*) 1,250 MG in NS 0.9% 250 ML* 250 ML IVPB SCH (21:00)
[2017-09-15] MEDS: Acetaminophen TAB* 325 MG PO PRN ×2 (00:28→11:40)
[2017-09-15] MEDS: NS 0.9% 1000 ML* 1,000 ML IV SCH (00:29)
[2017-09-15] MEDS: Meropenem 500MG PREMIX(*) 500 MG/50 ML BAG IV SCH ×2 (00:46→09:13)
[2017-09-15] MEDS: HYDROmorphone INJ* 1 MG/ML CARPUJECT SYRINGE IV SLOW PU PRN ×4 (00:49→13:49)
[2017-09-15] MEDS: Hydrocortisone INJ* 100 MG VIAL IV SCH ×2 (04:55→13:47)
[2017-09-15] MEDS: Heparin VIAL(*) 5000 UNITS/ML VIAL (FIVE THOUSAND) SUBCUT SCH ×2 (06:00→13:46)
[2017-09-15 06:12] LABS: ABS Basophils 0 10^3/ul (0-0.2); ABS Eosinophils 0 10^3/ul (0-0.6); ABS Monocytes 0.5 10^3/ul (0-0.8); ABS Neutrophils 6.2 10^3/ul (1.5-7.7); ABS Nucleated RBC 0 10^3/ul; Eosinophil % 0.6 % (0-6); Hematocrit 33 % (42-52); Lymphocyte % 12.9 % (25-47); Mean Corpuscular HGB Conc 34 g/dl (31-36); Mean Corpuscular Hemoglobin 30 pg (27-31); Mean Corpuscular Volume 88 fL (80-94); Mean Platelet Volume 9 um3 (7.4-10.4); Nucleated Red Blood Cells % 0; Platelet Count 161 10^3/ul (150-450); Red Blood Count 3.71 10^6/ul (4.0-5.4); Red Cell Distribution Width 15 % (10.5-15); White Blood Count 7.8 10^3/ul (3.5-10.8)
[2017-09-15] MEDS: Insulin LISPRO* 1 UNITS UNIT SUBCUT SCH ×4 (08:24→13:17)
[2017-09-15] MEDS ORDERED: Levofloxacin 750 MG IVPREMIX(* 750 MG/150 ML BAG IVPB SCH (09:00)
[2017-09-15] MEDS ORDERED: Pneumococcal *Vac Polyvalent 0.5 ML VIAL IM ONE (09:00)
[2017-09-15] MEDS: oxyCODONE SR TAB(*) 15 MG TAB.SR PO SCH (09:12)
[2017-09-15] MEDS: Pregabalin CAP(*) 100 MG PO SCH (09:12)
[2017-09-15] MEDS: BuPROPion XL* 300 MG TAB.XL PO SCH (09:12)
[2017-09-15] MEDS: Tamsulosin CAP* 0.4 MG PO SCH (09:12)
[2017-09-15] MEDS: DULoxetine DR CAP* 60 MG CAP.DR PO SCH (09:12)
[2017-09-15] MEDS: Aspirin EC Low Dose* 81 MG TAB.EC PO SCH (09:12)
[2017-09-15 11:57] VITALS: BP 159/77
[2017-09-15] MEDS ORDERED: Vancomycin(*) 1,000 MG in NS 0.9% 250 ML* 250 ML IVPB SCH (14:30)
[2017-09-15] MEDS ORDERED: Levofloxacin 500 MG IVPREMIX(* 500 MG/100 ML BAG IVPB SCH (20:00)
--- NOTE | 2017-09-16 21:29 | DS ---
DISCHARGE SUMMARY: DATE OF ADMISSION: 09/13/17 DATE OF DISCHARGE: 09/15/17 ADMITTING PROVIDER: Ninfa Patterson MD ATTENDING PHYSICIANS: Dr. Marquise Bray (mold filler and drainer while in the ICU & Bipin Bahena MD, hospitalist, on day of discharge. CHIEF COMPLAINT: Altered mental status. PRINCIPAL DIAGNOSIS: Sepsis secondary to right lower lobe pneumonia with some concern for possible aspiration; altered mental status, acute kidney injury HISTORY OF PRESENT ILLNESS AND HOSPITAL COURSE: Edy Schmid is a 62-year- old male with past medical history of insulin-dependent diabetes mellitus; hypertension; chronic pain meds; chronic back pain, on chronic narcotics, multiple left knee surgeries, on chronic suppressive doxycycline therapy for chronic group B strep infection; remote history of severe sepsis in July 2016 with septic shock, secondary thought to a viral infection. The patient presents this admission due to concern by his as he had becoming more altered with mumbling speech, wobbly gait, and was being more argumentative. She was concerned as this happened the last time he got really sick/septic as well. She stated he had been coughing and having upper respiratory congestion for the past several weeks. Had been trying to get him to see a doctor, though he had been refusing. He was not able to provide a good history in the emergency room, though he denied vomiting or diarrhea. He did have some left- sided abdominal pain and bilateral hip pain. He reported some problems with urinary retention and nocturia. In the ED, he was agitated and given 1 mg of Ativan; therefore, he became hypotensive, he received 2 L of fluid. He was noted to be hypoglycemic, received an amp of D50 and then a D5 drip. He was afebrile. White count of 19.9 on admission. He was admitted for altered mental status and sepsis. He did have an initial lactic acidosis of 3.6 along with acute kidney injury with a creatinine of 4.76 with no history of chronic kidney disease. His initial blood pressure had been 132/116, but he had readings as low as 56/44, mostly 70s to 80s/50s in the emergency room.. Initial heart rate was tachycardic to 103. His initial temperature 97.8, but did spike at 100.4 on hospital day #2 evening. He was initially started on vancomycin and Levaquin in the ED. Given his hemodynamic instability on admission, he was transferred to the services of Dr. Marquise Bray, the mold filler and drainer, on hospital day #2, who started meropenem as there was some concern for recent hospitalization. Of note, this seems to have been somewhat of a misinterpretation of the dates of his recent sepsis presentation, that was July 2016, a full 14 months prior to this admission, rather than 2 to 3 months prior. Regardless, he improved on the meropenem, vancomycin. His Levaquin was stopped. It was thought he was unlikely to be having atypical pneumonia infection given that he was already on chronic doxycycline. On admission, his imaging had consisted of a chest x-ray, which showed an inflammatory infiltrate at the right lung base and cardiomegaly without evidence of pulmonary edema. He had a CT of the abdomen, pelvis without contrast, which showed significant gastric distention without visualized obstructing lesion, consideration for a gastroparesis. No obstructive uropathy , no abdominal pelvic acute inflammatory process or abscess, collection evident. He had a CT of the brain without contrast, which showed no acute abnormality and bilateral proptosis without change. By hospital stay #3, his white count had fallen to 7.8. His kidney function had dramatically improved back to the baseline with a creatinine of 0.85. He was afebrile since night prior. Blood pressures were in the 140s to 150s, pulse 88 to 91, and the patient was insistent on discharge as he was stating that he was completely uncomfortable in the hospital beds provided including the second bariatic one in the room. The patient's microbiology data had been negative with MRSA in nares negative and vancomycin at that time was stopped. He had negative flu swabs. There were no blood cultures obtained on admission most notably and he did not provide a sputum sample. Given the mixup about the timing of his recent sepsis admission, the patient was thought to be at significantly less risk for multidrug-resistant organisms and is being discharged with a course of Augmentin to cover potential aspiration events. He is noted to be on large doses of opioid medications, has gastric distension, seem to be withdrawing to some extent in the ICU per Dr. Bray's evaluation from some of his neuroactive medications. The patient was instructed to follow up closely with primary care provider, Dr. Oanh Whitaker, with any signs of fevers, lightheadedness, shortness of breath, chest pain, abdominal pain. DISCHARGE MEDICATIONS: Include: 1. Augmentin 875 mg p.o. b.i.d. for 7 days. 2. Aspirin 81 mg daily. 3. Atorvastatin 40 mg p.o. daily. 4. Bupropion 300 mg p.o. daily. 5. Flexeril 10 mg p.o. t.i.d. 6. Doxycycline 100 mg p.o. b.i.d. 7. Cymbalta 60 mg p.o. b.i.d. 8. Lispro 5 to 25 units q.a.c. 9. Multivitamin 1 tab p.o. daily. 10. OxyContin 15 mg p.o. b.i.d. 11. Oxycodone 10 mg p.o. q.6 hours. 12. Lyrica 100 mg p.o. t.i.d. 13. Tamsulosin 0.4 mg p.o. daily. 14. Lantus 42 units subcutaneous q.h.s. DIET: Carbohydrate consistent. ACTIVITY LEVEL: No restrictions. FOLLOW UP: Please follow up with Dr. Oanh Whitaker within 5 days of discharge. TIME SPENT: On discharge 45 minutes. [id number]/[facility] #: [id number] [facility]PITALJourdan
[2017-09-17] MEDS ORDERED: Vancomycin Trough Check NOTE FOLLOW UP ONE (06:00)
== END 2017-09-15 16:00 | disposition home or self-care (01) | DRG 720 ==
LOC: ED 17:51 → ICU 21:35 → MED 09-15
PROVIDERS: ADMIT Pediatrics; ATTEND Internal Medicine
PROC: 5A09357 Assistance with Respiratory Ventilation, Less than 24 Consecutive Hours, Continuous Positive Airway Pressure (ICD-10-PCS; principal; 2017-09-14)
DX: A41.9 Sepsis, unspecified organism (principal); J18.9 Pneumonia, unspecified organism; N17.9 Acute kidney failure, unspecified; E11.40 Type 2 diabetes mellitus with diabetic neuropathy, unspecified; I95.9 Hypotension, unspecified; M00.262 Other streptococcal arthritis, left knee; F11.20 Opioid dependence, uncomplicated; T84.54XA Infection and inflammatory reaction due to internal left knee prosthesis, initial encounter; R41.82 Altered mental status, unspecified; E11.9 Type 2 diabetes mellitus without complications; I10 Essential (primary) hypertension; G89.29 Other chronic pain; M54.9 Dorsalgia, unspecified; R33.9 Retention of urine, unspecified; R35.1 Nocturia; E11.649 Type 2 diabetes mellitus with hypoglycemia without coma; I51.7 Cardiomegaly; Z96.651 Presence of right artificial knee joint; B95.1 Streptococcus, group B, as the cause of diseases classified elsewhere; E78.5 Hyperlipidemia, unspecified; Z88.1 Allergy status to other antibiotic agents; M19.90 Unspecified osteoarthritis, unspecified site; F32.9 Major depressive disorder, single episode, unspecified; F41.9 Anxiety disorder, unspecified; G47.30 Sleep apnea, unspecified; G89.4 Chronic pain syndrome; E86.0 Dehydration; D64.9 Anemia, unspecified; Z79.82 Long term (current) use of aspirin; Z79.4 Long term (current) use of insulin; Z98.42 Cataract extraction status, left eye; Z98.41 Cataract extraction status, right eye; Z98.52 Vasectomy status; Z83.6 Family history of other diseases of the respiratory system; F17.210 Nicotine dependence, cigarettes, uncomplicated; Z87.442 Personal history of urinary calculi
CPT/HCPCS: 36415; 70450; 71045; 74176; 80048; 80053; 80202; 81003; 81015; 82533; 83605; 83735; 84443; 84484; 85025; 85610; 87502; 87641; 93005; 94760; 99285; A9270-GY; J1170; J1644; J1720; J2060; J3370

== ENCOUNTER 2017-10-15 10:44 | Emergency (ER) | payer BC, MEDICARE ==
[2017-10-15 13:41] LABS: ABS Basophils 0.1 10^3/ul (0-0.2); ABS Eosinophils 0.3 10^3/ul (0-0.6); ABS Lymphocytes 2.1 10^3/ul (1.0-4.8); ABS Monocytes 0.7 10^3/ul (0-0.8); ABS Neutrophils 8.3 10^3/ul (1.5-7.7); ABS Nucleated RBC 0 10^3/ul; Eosinophil % 2.3 % (0-6); Hematocrit 40 % (42-52); Hemoglobin 13.4 g/dl (14.0-18.0); Lymphocyte % 18.5 % (25-47); Mean Corpuscular HGB Conc 34 g/dl (31-36); Mean Corpuscular Hemoglobin 30 pg (27-31); Mean Corpuscular Volume 88 fL (80-94); Mean Platelet Volume 10 um3 (7.4-10.4); Nucleated Red Blood Cells % 0; Platelet Count 239 10^3/ul (150-450); Red Blood Count 4.51 10^6/ul (4.0-5.4); Red Cell Distribution Width 15 % (10.5-15); White Blood Count 11.5 10^3/ul (3.5-10.8)
[2017-10-15] MEDS ORDERED: Morphine INJ* 4 MG/ML 1 ML SYRINGE (NEW SYRINGE VERSION) IV ONE (13:45)
[2017-10-15] MEDS ORDERED: NS 0.9% 1000 ML* 1,000 ML IV ONE (13:45)
[2017-10-15] MEDS ORDERED: Metoclopramide IV* 5 MG/ML 2 ML VIAL IV ONE (13:45)
[2017-10-15] MEDS ORDERED: Morphine INJ* 4 MG/ML 1 ML SYRINGE (NEW SYRINGE VERSION) ONE (13:54)
[2017-10-15] MEDS ORDERED: Metoclopramide IV* 5 MG/ML 2 ML VIAL ONE (13:54)
[2017-10-15 13:58] LABS: EGFR Non-African American 96.2 (>60)
[2017-10-15 14:56] LABS: Urine Appearance Clear; Urine Blood Negative (Negative); Urine Color Yellow; Urine Ketones Negative (Negative); Urine Protein Negative (Negative); Urine Urobilinogen Negative (Negative)
[2017-10-15] MEDS ORDERED: Iodixanol* (CONTRAST) 320 MG/ML 100 ML SDV IV ONE (16:41)
--- NOTE | 2017-10-15 17:14 | RAD ---
CLINICAL HISTORY: Nausea and abdominal pain. Relevant surgical history includes appendectomy and bilateral thoracolumbar sacral spine fusion surgery.. COMPARISON: Most recent comparison CT examination is dated September 13, 2017 TECHNIQUE: Contrast enhanced CT examination of the abdomen and pelvis from the lung bases through the initial tuberosities. The patient received 114 mL Omnipaque 300 intravenously prior to imaging.The patient received oral contrast as well prior to imaging. FINDINGS: VISUALIZED LUNG BASES: The visualized lung bases are grossly clear. There is no pleural effusion. ABDOMEN AND PELVIS: The liver, spleen and pancreas are grossly normal in appearance. At the right adrenal gland there is a 1.6 cm soft tissue nodule that is similar in appearance to the 1.3 cm nodule seen on the February 18, 2015 CT examination. At the left adrenal gland there is a soft tissue nodule measuring 1.6 x 2.5 cm in the axial plane, previously 1.5 x 2.4 cm on the February 18, 2015 CT examination. The gallbladder is normal. The kidneys are normal in appearance without focal mass, calcification or signs of hydronephrosis. The oral contrast has progressed as far as the base of the cecum. At scattered loops of small bowel there are air-fluid levels without wall thickening or pathologic dilatation (for example axial image 48). The small and large bowel are not distended. The patient's surgical history, the appendix is not visualized. There is no gross retroperitoneal or mesenteric lymphadenopathy. There is coarse calcification in the mildly enlarged prostate gland similar in appearance to the previous CT examination. Bilateral vasectomy surgical clips are noted. 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 There is coarse atherosclerotic calcification of the abdominal aorta extending into the bilateral common iliac arteries and as far as the common femoral arteries. The patient is status post transpedicular posterior warren fixation from the T9 vertebral body to the bilateral iliac bones. The orthopedic hardware appears to be intact and appropriately aligned. IMPRESSION: 1. There are scattered loops of distal small bowel with air-fluid levels without wall thickening or other acute inflammatory change. Such appearance could be seen in the setting of low-grade ileitis. 2. There are extensive chronic, degenerative and iatrogenic findings described in the body the report.
[2017-10-15 17:53] VITALS: BP 157/81
--- NOTE | 2017-10-16 17:46 | ED ---
Todd Bhagat Angela, scribed for Boo Montoya MD on 10/15/17 at 1340 . Abdominal Pain/Male - HPI Summary HPI Summary: This pt is a 62 y/o male presenting to [facility] c/o abdominal pain from hernia x2 days. Pt reports his hernia has been there for some time now and has always been in the middle of his abdomen. 2 days ago he notes his hernia migrated to the left side. Pt states abd pain radiating to his back and rates his pain 8/10 in severity. His pain is aggravated with movement. He additionally notes nausea. Denies vomiting, chest pain, fever. - History of Current Complaint Chief Complaint: EDAbdPain Stated Complaint: ABD & BACK PAIN Time Seen by Provider: 10/15/17 13:38 Hx Obtained From: Patient Onset/Duration: Lasting Days, Still Present Timing: Lasting Days Severity Currently: Severe Pain Intensity: 8 Pain Scale Used: 0-10 Numeric Location: Diffuse Radiates: Yes Radiates to: Back Aggravating Factor(s): Movement Alleviating Factor(s): Nothing Associated Signs And Symptoms: Positive: Back Pain, Nausea. Negative: Vomiting - Allergies/Home Medications Allergies/Adverse Reactions: Allergies Allergy/AdvReac Type Severity Reaction Status Date / Time ceftriaxone Allergy Severe Itching Verified 10/15/17 13:15 PMH/Surg Hx/FS Hx/Imm Hx Endocrine/Hematology History: Reports: Hx Diabetes Denies: Hx Anticoagulant Therapy, Hx Thyroid Disease Cardiovascular History: Reports: Hx Hypercholesterolemia, Hx Hypertension, Other Cardiovascular Problems/Disorders - IDDM Denies: Hx Pacemaker/ICD Respiratory History: Reports: Hx Sleep Apnea - Undiagnosed per pt. Denies: Hx Asthma, Hx Bronchopulmonary Dysplasia, Hx Chronic Bronchitis, Hx Chronic Obstructive Pulmonary Disease (COPD), Hx Cystic Fibrosis, Hx Lung Cancer , Hx Pleural Effusion, Hx Pneumonia, Hx Pulmonary Edema, Hx Pulmonary Embolism, Hx Seasonal Allergies, Other Respiratory Problems/Disorders GI History: Denies: Other GI Disorders History: Reports: Hx Kidney Stones - IN THE PAST Denies: Hx Renal Disease, Other Problems/Disorders Musculoskeletal History: Reports: Hx Arthritis, Hx Back Problems - Chronic pain Denies: Other Musculoskeletal History Sensory History: Reports: Hx Cataracts - [place] Comment Only: Hx Contacts or Glasses - UNK, Hx Hearing Aid - UNK Opthamlomology History: Reports: Hx Cataracts - [place] Comment Only: Hx Contacts or Glasses - UNK Neurological History: Reports: Hx Nerve Disease - DIABETIC NEUROPATHY Denies: Hx Dementia, Hx Seizures Psychiatric History: Reports: Hx Anxiety - ON MEDS, Hx Depression - ON MEDS Denies: Hx Substance Abuse - Surgical History Surgery Procedure, Year, and Place: Total of 8 knee surgerys, total knee replacement, TKA, lumbar laminectomy c warren placement, bilateral cataract surgery , vasectomy, appendectomy, cervical disectomy Hx Anesthesia Reactions: No Infectious Disease History: No Infectious Disease History: Reports: Hx of Known/Suspected MRSA - Lip Denies: Hx Hepatitis, Hx Human Immunodeficiency Virus (HIV), Traveled Outside the [place] in Last 30 Days - Family History Known Family History: Negative: Other - negative anesthesia reaction - Social History Alcohol Use: None Substance Use Type: Reports: None Substance Use Comment - Amount & Last Used: RX OxyContin 80mg qd Hx Tobacco Use: Yes Smoking Status (MU): Current Every Day Smoker Type: Cigarettes Amount Used/How Often: 5-6 cigarettes/day Have You Smoked in the Last Year: Yes Review of Systems Negative: Fever, Chills Negative: Chest Pain Negative: Shortness Of Breath Positive: Abdominal Pain, Nausea. Negative: Vomiting Musculoskeletal: Other - back pain Neurological: Negative All Other Systems Reviewed And Are Negative: Yes Physical Exam - Summary Physical Exam Summary: VITAL SIGNS: Reviewed. GENERAL: Patient is a well-developed and nourished male who is lying comfortable in the stretcher. Patient is not in any acute respiratory distress. HEAD AND FACE: Normocephalic and atraumatic. EYES: PERRLA, EOMI x 2, No injected conjunctiva. EARS: Hearing grossly intact. Ear canals and tympanic membranes are WNL. MOUTH: Oropharynx within normal limits. NECK: Supple, trachea is midline, no adenopathy, no JVD. CHEST: Symmetric, no tenderness at palpation LUNGS: Clear to auscultation bilaterally. No wheezing or crackles. CVS: RRR, S1 and S2 present, no murmurs or gallops appreciated. ABDOMEN: Soft. No signs of distention. Decreased bowel sounds. No rebound no guarding. Pt has a hernia that is indurated in the ventral abdominal region. EXTREMITIES: FROM in all major joints, no edema, no cyanosis or clubbing. NEURO: Alert and oriented x 3. No acute neurological deficits. Speech is normal. SKIN: Dry and warm Triage Information Reviewed: Yes Vital Signs On Initial Exam: Initial Vitals Temp Pulse Resp BP Pulse Ox 97.7 F 99 22 118/71 97 10/15/17 10:46 10/15/17 10:46 10/15/17 10:46 10/15/17 10:46 10/15/17 10:46 Vital Signs Reviewed: Yes Diagnostics - Vital Signs Vital Signs Temp Pulse Resp BP Pulse Ox 10/15/17 13:25 89 99 10/15/17 13:23 147/119 10/15/17 12:30 98.3 F 93 18 149/74 100 10/15/17 10:46 97.7 F 99 22 118/71 97 - Laboratory Lab Results: Lab Results 10/15/17 10/15/17 10/15/17 Range/Units 13:27 13:27 14:42 WBC 11.5 H (3.5-10.8) 10^3/ul RBC 4.51 (4.0-5.4) 10^6/ul Hgb 13.4 L (14.0-18.0) g/dl Hct 40 L (42-52) % MCV 88 (80-94) fL MCH 30 (27-31) pg MCHC 34 (31-36) g/dl RDW 15 (10.5-15) % Plt Count 239 (150-450) 10^3/ul MPV 10 (7.4-10.4) um3 Neut % (Auto) 72.2 (38-83) % Lymph % (Auto) 18.5 L (25-47) % [place] % (Auto) 6.5 (0-7) % Eos % (Auto) 2.3 (0-6) % Baso % (Auto) 0.5 (0-2) % Absolute Neuts (auto) 8.3 H (1.5-7.7) 10^3/ul Absolute Lymphs (auto) 2.1 (1.0-4.8) 10^3/ul Absolute Monos (auto) 0.7 (0-0.8) 10^3/ul Absolute Eos (auto) 0.3 (0-0.6) 10^3/ul Absolute Basos (auto) 0.1 (0-0.2) 10^3/ul Absolute Nucleated RBC 0 10^3/ul Nucleated RBC % 0 Sodium 136 (133-145) mmol/L Potassium 4.2 (3.5-5.0) mmol/L Chloride 105 (101-111) mmol/L Carbon Dioxide 26 (22-32) mmol/L Anion Gap 5 (2-11) mmol/L BUN 12 (6-24) mg/dL Creatinine 0.81 (0.67-1.17) mg/dL Est GFR ( Amer) 123.8 (>60) Est GFR (Non-Af Amer) 96.2 (>60) BUN/Creatinine Ratio 14.8 (8-20) Glucose 147 H (70-100) mg/dL Lactic Acid (0.5-2.0) mmol/L Calcium 9.5 (8.6-10.3) mg/dL Total Bilirubin 0.30 (0.2-1.0) mg/dL AST 14 (13-39) U/L ALT 15 (7-52) U/L Alkaline Phosphatase 110 H (34-104) U/L C-Reactive Protein 30.27 H (< 5.00) mg/L C-React Prot High Sens 29.70 mg/L Total Protein 7.2 (6.4-8.9) g/dL Albumin 4.2 (3.2-5.2) g/dL Globulin 3.0 (2-4) g/dL Albumin/Globulin Ratio 1.4 (1-3) Lipase 27 (11.0-82.0) U/L Urine Color Yellow Urine Appearance Clear Urine pH 5.0 (5-9) Ur Specific [place] 1.010 (1.010-1.030) Urine Protein Negative (Negative) Urine Ketones Negative (Negative) Urine Blood Negative (Negative) Urine Nitrate Negative (Negative) Urine Bilirubin Negative (Negative) Urine Urobilinogen Negative (Negative) Ur Leukocyte Esterase Negative (Negative) Urine Glucose Negative (Negative) 10/15/17 Range/Units 15:31 WBC (3.5-10.8) 10^3/ul RBC (4.0-5.4) 10^6/ul Hgb (14.0-18.0) g/dl Hct (42-52) % MCV (80-94) fL MCH (27-31) pg MCHC (31-36) g/dl RDW (10.5-15) % Plt Count (150-450) 10^3/ul MPV (7.4-10.4) um3 Neut % (Auto) (38-83) % Lymph % (Auto) (25-47) % [place] % (Auto) (0-7) % Eos % (Auto) (0-6) % Baso % (Auto) (0-2) % Absolute Neuts (auto) (1.5-7.7) 10^3/ul Absolute Lymphs (auto) (1.0-4.8) 10^3/ul Absolute Monos (auto) (0-0.8) 10^3/ul Absolute Eos (auto) (0-0.6) 10^3/ul Absolute Basos (auto) (0-0.2) 10^3/ul Absolute Nucleated RBC 10^3/ul Nucleated RBC % Sodium (133-145) mmol/L Potassium (3.5-5.0) mmol/L Chloride (101-111) mmol/L Carbon Dioxide (22-32) mmol/L Anion Gap (2-11) mmol/L BUN (6-24) mg/dL Creatinine (0.67-1.17) mg/dL Est GFR ( Amer) (>60) Est GFR (Non-Af Amer) (>60) BUN/Creatinine Ratio (8-20) Glucose (70-100) mg/dL Lactic Acid 1.0 (0.5-2.0) mmol/L Calcium (8.6-10.3) mg/dL Total Bilirubin (0.2-1.0) mg/dL AST (13-39) U/L ALT (7-52) U/L Alkaline Phosphatase (34-104) U/L C-Reactive Protein (< 5.00) mg/L C-React Prot High Sens mg/L Total Protein (6.4-8.9) g/dL Albumin (3.2-5.2) g/dL Globulin (2-4) g/dL Albumin/Globulin Ratio (1-3) Lipase (11.0-82.0) U/L Urine Color Urine Appearance Urine pH (5-9) Ur Specific [place] (1.010-1.030) Urine Protein (Negative) Urine Ketones (Negative) Urine Blood (Negative) Urine Nitrate (Negative) Urine Bilirubin (Negative) Urine Urobilinogen (Negative) Ur Leukocyte Esterase (Negative) Urine Glucose (Negative) Result Diagrams: 10/15/17 13:27 10/15/17 13:27 Lab Statement: Any lab studies that have been ordered have been reviewed, and results considered in the medical decision making process. - CT Abdomen/Pelvis CT CT Interpretation: No Acute Changes - IMPRESSION: 1. There are scattered loops of distal small bowel with air-fluid levels without wall thickening or other acute inflammatory change. Such appearance could be seen in the setting of low- grade ileitis. 2. There are extensive chronic, degenerative and iatrogenic findings described in the body report. Dr. Montoya has reviewed this radiology report. CT Interpretation Completed By: Radiologist Re-Evaluation - Re-Evaluation First Eval Re-Evaluation Time: 17:41 Comment: I reviewed the abdomen/pelvis CT results with the pt. Pt will be discharged. Abdominal Pain Fem Course/Dx - Course Assessment/Plan: This pt is a 62 y/o male presenting to [facility] c/o abdominal pain from hernia x2 days. Pt reports his hernia has been there for some time now and has always been in the middle of his abdomen. 2 days ago he notes his hernia migrated to the left side. Pt states abd pain radiating to his back and rates his pain 8/10 in severity. His pain is aggravated with movement. He additionally notes nausea. Denies vomiting. Test results without any significant abnormalities except for WBC of 11.5, hemoglobin of 13.4, hematocrit of 40, glucose of 147, CRP of 30.27. Urinalysis is negative for UTI. Abdomen/Pelvis CT: 1. There are scattered loops of distal small bowel with air -fluid levels without wall thickening or other acute inflammatory change. Such appearance could be seen in the setting of low-grade ileitis. 2. There are extensive chronic, degenerative and iatrogenic findings described in the body report. In the ED course the pt was given IV fluids, reglan for the nausea and vomiting, morphine for the pain. Pt reports feeling better after these medications, and has minimal pain. Therefore he will be discharged to home with follow up from his PCP. I discussed all the findings and test results with the patient. Patient was instructed to return to the emergency room immediately if any of the symptoms return or worsens. Plan of care was discussed with the patient and understands and agrees. All questions were answered at patient satisfaction. There were no further complaints or concerns. He is instructed to return to the ED for any worsening or new symptoms. Pt is hemodynamically stable, alert and oriented x3. - Diagnoses Provider Diagnoses: Ileitis, Abdominal pain Discharge - Discharge Plan Condition: Stable Disposition: HOME Patient Education Materials: Abdominal Pain (ED) Referrals: Oanh Whitaker MD [Primary Care Provider] - 3 Days Additional Instructions: Please follow up with your primary care provider. RETURN TO THE ED FOR ANY WORSENING SYMPTOMS. The documentation as recorded by the Todd hammond Angela accurately reflects the service I personally performed and the decisions made by , Boo Montoya MD.
== END 2017-10-15 17:53 | disposition home or self-care (01) ==
LOC: ED 10:44
DX: K52.9 Noninfective gastroenteritis and colitis, unspecified (principal); R10.9 Unspecified abdominal pain; E11.40 Type 2 diabetes mellitus with diabetic neuropathy, unspecified; F17.210 Nicotine dependence, cigarettes, uncomplicated
CPT/HCPCS: 36415; 74177; 80053; 81003; 83605; 83690; 85025; 86140; 86141; 96360; 96374; 99283; J2270; J2765; Q9967

== ENCOUNTER 2018-08-10 17:19 | Inpatient (IN) | payer MEDICARE, BC ==
[2018-08-10] MEDS ORDERED: NS 0.9% 1000 ML* 1,000 ML IV ONE ×2 (17:58→20:07)
--- NOTE | 2018-08-10 18:06 | ED ---
HPI Chest Pain - HPI Summary HPI Summary: This pt is a 63 y/o male presenting to [facility] c/o intermittent midsternal chest pain x1 week. Pt reports body aches, cough, arthralgia. 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 Denies fever, SOB, nausea, vomiting. PMHx includes surgery on bilateral knees (with Dr. Lipscomb from [facility]). Pt takes daily antibiotics, Doxycycline, for knee infections. HPI is limited because pt is a poor historian. - History of Current Complaint Chief Complaint: EDGeneral Time Seen by Provider: 08/10/18 17:47 Hx Obtained From: Patient, Family/Grinder Set Up Operator Internal - weatherization technician Hx From Patient Unobtainable Due To: Other - level 5 caveat - pt is a poor historian Onset/Duration: Still Present Timing: Lasting Days - 3 Current Severity: Moderate Pain Intensity: 7 Pain Scale Used: 0-10 Numeric Chest Pain Location: Mid Sternal Chest Pain Radiates: No Aggravating Factor(s): Nothing Alleviating Factor(s): Nothing Associated Signs and Symptoms: Positive: Chest Pain, Cough, Other: - POS: shaking, body aches, incoherent.. Negative: Shortness of Breath, Fever, Chills - Additional Pertinent History Primary Care Physician: [id number] - Allergy/Home Medications Allergies/Adverse Reactions: Allergies Allergy/AdvReac Type Severity Reaction Status Date / Time ceftriaxone Allergy Severe Itching Verified 08/10/18 17:51 Home Medications: Home Medications DOXYcycline CAP(*) 100 mg PO BID 08/10/18 [History Confirmed 08/10/18] Lisinopril 20 mg PO DAILY 08/10/18 [History Confirmed 08/10/18] Oxycodone TAB(NF) [Oxycodone HCl 10 MG] 10 mg PO 12 PRN MDD 4 08/10/18 [History Confirmed 08/10/18] Tamsulosin CAP* 0.4 mg PO DAILY 08/10/18 [History Confirmed 08/10/18] PMH/Surg Hx/FS Hx/Imm Hx Endocrine/Hematology History: Reports: Hx Diabetes Denies: Hx Anticoagulant Therapy, Hx Thyroid Disease Cardiovascular History: Reports: Hx Hypercholesterolemia, Hx Hypertension, Other Cardiovascular Problems/Disorders - IDDM Denies: Hx Pacemaker/ICD Respiratory History: Reports: Hx Sleep Apnea - Undiagnosed per pt. Denies: Hx Asthma, Hx Bronchopulmonary Dysplasia, Hx Chronic Bronchitis, Hx Chronic Obstructive Pulmonary Disease (COPD), Hx Cystic Fibrosis, Hx Lung Cancer , Hx Pleural Effusion, Hx Pneumonia, Hx Pulmonary Edema, Hx Pulmonary Embolism, Hx Seasonal Allergies, Other Respiratory Problems/Disorders GI History: Denies: Other GI Disorders History: Reports: Hx Kidney Stones - IN THE PAST Denies: Hx Renal Disease, Other Problems/Disorders Musculoskeletal History: Reports: Hx Arthritis, Hx Back Problems - Chronic pain Denies: Other Musculoskeletal History Sensory History: Reports: Hx Cataracts - [place] Comment Only: Hx Contacts or Glasses - UNK, Hx Hearing Aid - UNK Opthamlomology History: Reports: Hx Cataracts - [place] Comment Only: Hx Contacts or Glasses - UNK Neurological History: Reports: Hx Nerve Disease - DIABETIC NEUROPATHY Denies: Hx Dementia, Hx Seizures Psychiatric History: Reports: Hx Anxiety - ON MEDS, Hx Depression - ON MEDS Denies: Hx Substance Abuse - Surgical History Surgery Procedure, Year, and Place: Total of 8 knee surgerys, total knee replacement, TKA, lumbar laminectomy c warren placement, bilateral cataract surgery , vasectomy, appendectomy, cervical disectomy Hx Anesthesia Reactions: No - Immunization History Immunizations Up to Date: Yes Infectious Disease History: No Infectious Disease History: Reports: Hx of Known/Suspected MRSA - Lip Denies: Hx Hepatitis, Hx Human Immunodeficiency Virus (HIV), Traveled Outside the [place] in Last 30 Days - Family History Known Family History: Negative: Other - negative anesthesia reaction - Social History Alcohol Use: None Substance Use Type: Reports: None Substance Use Comment - Amount & Last Used: RX OxyContin 80mg qd Hx Tobacco Use: Yes Smoking Status (MU): Current Every Day Smoker Type: Cigarettes Amount Used/How Often: 5-6 cigarettes/day Have You Smoked in the Last Year: Yes Review of Systems - ROS Summary Review of Systems Summary: ROS IS LIMITED DUE TO LEVEL 5 CAVEAT - pt is a poor historian Constitutional: Other - POS: shaking Negative: Fever Positive: Chest Pain Positive: Cough. Negative: Shortness Of Breath Negative: Vomiting, Nausea Positive: Arthralgia - knee pain, Myalgia Neurological: Other - POS: incoherent All Other Systems Reviewed And Are Negative: No Physical Exam - Summary Physical Exam Summary: VITAL SIGNS: Reviewed. GENERAL: Patient is a well-developed and nourished male who is lying comfortable in the stretcher. Patient is not in any acute respiratory distress. HEAD AND FACE: No signs of trauma. No ecchymosis, hematomas or skull depressions. No sinus tenderness. EYES: PERRLA, EOMI x 2, No injected conjunctiva, no nystagmus. EARS: Hearing grossly intact. Ear canals and tympanic membranes are within normal limits. MOUTH: Oropharynx within normal limits. NECK: Supple, trachea is midline, no adenopathy, no JVD, no carotid bruit, no c- spine tenderness, neck with full ROM. CHEST: Symmetric, no tenderness at palpation LUNGS: Clear to auscultation bilaterally. No wheezing or crackles. CVS: Regular rate and rhythm, S1 and S2 present, no murmurs or gallops appreciated. ABDOMEN: Soft, non-tender. No signs of distention. No rebound, no guarding, and no masses palpated. Bowel sounds are normal. EXTREMITIES: FROM in all major joints, no edema, no cyanosis or clubbing. NEURO: Alert and oriented x 3. No acute neurological deficits. Speech is normal and follows commands. SKIN: Dry and warm Triage Information Reviewed: Yes Vital Signs On Initial Exam: Initial Vitals Temp Pulse Resp BP Pulse Ox 97.9 F 99 18 95/54 90 08/10/18 17:22 08/10/18 17:22 08/10/18 17:22 08/10/18 17:22 08/10/18 17:22 Vital Signs Reviewed: Yes Completion Of Physical Exam Limited Due To: Level 5 - pt is a poor historian Diagnostics - Vital Signs Vital Signs Temp Pulse Resp BP Pulse Ox 08/10/18 17:22 97.9 F 99 18 95/54 90 - Laboratory Result Diagrams: 08/10/18 18:36 08/10/18 18:36 Lab Statement: Any lab studies that have been ordered have been reviewed, and results considered in the medical decision making process. - Radiology Chest XR Radiology Interpretation Completed By: ED Physician Summary of Radiographic Findings: negative chest XR. Pending official radiology report. - CT Brain CT CT Interpretation Completed By: Radiologist Summary of CT Findings: IMPRESSION: No acute intracranial pathology. Dr. Montoya has reviewed this report. - EKG 17:31 Cardiac Rate: NL - at 89 bpm EKG Rhythm: Sinus Rhythm Summary of EKG Findings: No ST elevations. Re-Evaluation - Re-Evaluation First Eval Re-Evaluation Time: 19:26 Comment: Bladder scan shows more than 900 CC. Chest Pain Course/Dx - Course Assessment/Plan: This pt is a 63 y/o male presenting to [facility] c/o intermittent midsternal chest pain x1 week. Pt reports body aches, cough, arthralgia. 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 Denies fever, SOB, nausea, vomiting. PMHx includes surgery on bilateral knees (with Dr. Lipscomb from [facility]). Pt takes daily antibiotics, Doxycycline, for knee infections. HPI is limited because pt is a poor historian. Past medical history significant for diabetes, hypertension, dyslipidemia, chronic pain, depression, altered mental status, hyponatremia and renal failure. Test results without any significant abnormality except for WBCs of 14.4, slight anemia, fibrinogen 606, sodium level of 133, potassium level of 5.9, BUN is 95, creatinine is 3.49 consistent with an acute on chronic renal failure and possibly secondary to dehydration, and CRP is 144.63. Urinalysis negative for UTI. Influenza A and B is negative. In the ED course the patient was given IV fluids, we did a bladder scan and the patient had a urinary retention. We put a Tomlinson catheter and he had output of approximately 1300 cc of fluid of urine. Urinalysis negative for UTI. At this point I did not treat the potassium level of 5.9 since I believe that the patient is dehydrated. So therefore we will give 2 L of IV fluids and if the potassium level continues to be high the patient the patient will get Kayexalate. At this time I discussed my physical exam and findings with Dr. Bahena, hospitalist, who accepted the patient for admission. He agrees with management up to this point. - Chest Pain Differential Diagnosis/HQI/PQRI: Acute AL, ACS, Angina, CHF, Chest Wall, GI Disease, Lower Respiratory Infection, Other: - Urinaty retention, UTI, pneumonia - Diagnoses Provider Diagnoses: Urinary retention, Acute on chronic renal failure, Hyperkalemia, Mental status alteration - Provider Notifications Discussed Care Of Patient With: Bipin Bahena - hospitalist Time Discussed With Above Provider: 20:05 Instructed by Provider To: Admit As Inpatient Discharge - Sign-Out/Discharge Documenting (check all that apply): Patient Departure - Admit to [facility] - Discharge Plan Condition: Stable Disposition: ADMITTED TO [facility] - Billing Disposition and Condition Condition: STABLE Disposition: Admitted to [facility] - Attestation Statements Document Initiated by Scribe: Yes Documenting Scribe: Anju Brooks Provider For Whom Scribe is Documenting (Include Credential): Boo Montoya MD Scribe Attestation: Anju Bhagat, scribed for Boo Montoya MD on 08/10/18 at 2103. Scribe Documentation Reviewed: Yes Provider Attestation: The documentation as recorded by the Anju hammond accurately reflects the service I personally performed and the decisions made by mi, Boo Montoya MD Status of Scribe Document: Viewed
--- OUTSIDE RECORDS SUMMARY | 2018-08-10 18:15 | XMS REPORT | Continuity of Care Document ---
:1955 External Reference #:[id number] Author Name John Latham DO MPH Address [address] [place] [address], [address] [place] [address] Care Team Providers Name Role Phone Oanh Whitaker M.D. 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 Primary Care Physician Unavailable Payers Type Date Identification Numbers Payment Provider Subscriber Policy Number: [id number] [place] PayID: [id number] [address] [place] [address] Effective: 2014 Policy Number: [id number] [place] A Schmid Expires: 2018 PayID: [id number] [address] [address] [place] [address] PayID: [id number] [place] Schmid [address] [address] [place] [address] Expires: 2018 Policy Number: [id number] [place] PayID: [id number] [address] [place] [address] Advance Directives Description No Information Available Problems Date Description Provider Status Onset: 03/04/2017 Type 2 diabetes mellitus John Latham DO, MPH Active Family History Date Family Member(s) Problem(s) Comments Father due to Auto Accident () Mother due to Natural Causes () Children 3 Siblings None Grandchildren 2 Social History Type Date Description Comments Sex Unknown Marital Status Lives With Spouse Occupation Retired Work Status Not Currently Working ETOH Use Denies alcohol use Recreational Drug Use Denies Drug Use Tobacco Use Start: Unknown End: Unknown Patient is a former smoker Smoking Status Reviewed: 08/06/18 Patient is a former smoker Allergies, Adverse Reactions, Alerts Date Description Reaction Status Severity Comments 03/04/2017 Celecoxib Active 03/04/2017 Testosterone Active 03/04/2017 Ceftriaxone Urticaria Active Medications Medication Date Status Form Strength Qnty SIG Indications Ordering Provider Elavil 09/10/ Active Tablets 25mg 30tab si by Yeison 2017 s mouth every John, night at DO, MPH bedtime. as directed Oxycontin 07/09/ Active Tab ER 12H 20mg 30tab si by Meka Latham Abuse-Det s mouth every John, 12 hours DO, MPH chronic pain patient Oxycodone HCL 05/25/ Active Tablets 10mg 180ta si-2 by Meka Latham bs mouth every John, 6 to 8 hours DO, MPH as directed chronic pain patient Humalog / Active Solution 100Unit/M 22 units Unknown Kwikpen 0000 Pen-Inject L daily Lantus / Active Solution 100Unit/M si Unknown 0000 L units daily Lisinopril / Active Tablets 10mg 1 by mouth Unknown 0000 every day Simvastatin / Active Tablets 20mg 1 by mouth Unknown 0000 every day Cymbalta / Active Caps DR Part 60mg si by Unknown 0000 mouth twice daily Doxycycline / Active Tablets 100mg si by Unknown Hyclate 0000 mouth every 12 hours as directed Bupropion HCL / Active Tablets ER 300mg 1 by mouth Unknown ER (XL) 0000 24HR daily Aspirin / Active Tablets DR 81mg 1 by mouth Unknown 0000 daily One Daily For / Active Tablets Men 50+ 1 by mouth Unknown Men 50+ 0000 daily Advanced Lyrica / Active Capsules 100mg 90cap sipo Unknown 0000 s every 8 hours as directed chronic pain patient Oxycontin 05/25/ Hx Tab ER 12H 15mg 60tab take 1 Yeison 2016 - Abuse-Det s tablet by John, 07/09/ mouth every DO, MPH 2016 12 hours as directed chronic pain Morphine 03/19/ Hx Tablets ER 15mg 60tab si by Yeison Sulfate ER 2016 - s mouth every John, 05/25/ 12 hours as DO, MPH 2016 directed chronic pain patient Oxycodone HCL 03/04/ Hx Concentrate 100mg/5ML 30ml si/4-08/04 Meka Latham - milliliters John, 05/25/ sl by mouth DO, MPH 2017 every 6 to 8 hours as directed chronic pain patient Morphine 03/04/ Hx Tablets 15mg 180ta si-2 by Svetlana Latham 2017 - bs mouth every John, 05/25/ 6 to 8 hours DO, MPH 2017 as directed chronic pain patient Oxycontin / Hx Tab ER 12H 15mg take 1 Unknown 0000 - Abuse-Det tablet by mouth every 2016 12 hours as directed chronic pain Oxycodone HCL / Hx Tablets 15mg si by Unknown 0000 - mouth every 03/04/ 8 hours as 2017 directed chronic pain patient Tamsulosin / Hx Capsules 0.4mg 1 by mouth Unknown HCL 0000 - daily 2016 Immunizations Description No Information Available Vital Signs Date Vital Result Comment 08/06/2018 9:50am BP Systolic 140 mmHg BP Diastolic 86 mmHg Heart Rate 82 /min Respiratory Rate 20 /min Height 71 inches 5'11" Weight 206.00 lb Pain Level 8 Pain at this time. Pain Level With Medicine 7 on average with meds Pain Level Without Medicine 10 05/12 without meds BMI (Body Mass Index) 28.7 kg/m2 07/08/2018 9:30am BP Systolic 134 mmHg BP Diastolic 76 mmHg Heart Rate 72 /min Respiratory Rate 20 /min Height 71 inches 5'11" Weight 206.00 lb Pain Level 7 Pain at this time. Pain Level With Medicine 6 on average with meds Pain Level Without Medicine 10 05/12 without meds BMI (Body Mass Index) 28.7 kg/m2 06/07/2018 9:04am BP Systolic 136 mmHg BP Diastolic 88 mmHg Heart Rate 84 /min Respiratory Rate 20 /min Height 71 inches 5'11" Weight 204.00 lb Pain Level 8 Pain at this time. Pain Level With Medicine 7 on average with meds Pain Level Without Medicine 10 05/12 without meds BMI (Body Mass Index) 28.4 kg/m2 05/07/2018 8:56am BP Systolic 142 mmHg BP Diastolic 88 mmHg Heart Rate 78 /min Respiratory Rate 20 /min Height 71 inches 5'11" Weight 205.00 lb Pain Level 7 7/10, Pain at this time. Pain Level With Medicine 6 6/10, on average with meds Pain Level Without Medicine 10 05/12 without meds BMI (Body Mass Index) 28.6 kg/m2 04/09/2018 8:50am BP Systolic 134 mmHg BP Diastolic 78 mmHg Heart Rate 76 /min Respiratory Rate 20 /min Height 71 inches 5'11" Weight 204.00 lb Pain Level 6 Pain at this time. Pain Level With Medicine 6 on average with meds Pain Level Without Medicine 10 05/12 without meds BMI (Body Mass Index) 28.4 kg/m2 03/12/2018 8:57am BP Systolic 140 mmHg BP Diastolic 86 mmHg Heart Rate 84 /min Respiratory Rate 20 /min Height 71 inches 5'11" Weight 204.00 lb Pain Level 7 Pain at this time. Pain Level With Medicine 7 on average with meds Pain Level Without Medicine 10 05/12 without meds BMI (Body Mass Index) 28.4 kg/m2 02/09/2018 8:53am BP Systolic 138 mmHg BP Diastolic 84 mmHg Heart Rate 80 /min Respiratory Rate 20 /min Height 71 inches 5'11" Weight 203.00 lb Pain Level 6 Pain at this time. Pain Level With Medicine 6 on average with meds Pain Level Without Medicine 10 05/12 without meds BMI (Body Mass Index) 28.3 kg/m2 01/11/2018 9:11am BP Systolic 140 mmHg BP Diastolic 78 mmHg Heart Rate 76 /min Respiratory Rate 20 /min Height 71 inches 5'11" Weight 202.00 lb Pain Level 6 Pain at this time. Pain Level With Medicine 6 on average with meds Pain Level Without Medicine 05/12 without meds BMI (Body Mass Index) 28.2 kg/m2 12/11/2017 9:03am BP Systolic 128 mmHg BP Diastolic 80 mmHg Heart Rate 74 /min Respiratory Rate 20 /min Height 71 inches 5'11" Weight 200.00 lb Pain Level 6 Pain at this time. Pain Level With Medicine 5 on average with meds Pain Level Without Medicine 10 05/12 without meds BMI (Body Mass Index) 27.9 kg/m2 11/11/2017 9:05am BP Systolic 134 mmHg BP Diastolic 86 mmHg Heart Rate 84 /min Respiratory Rate 20 /min Height 71 inches 5'11" Weight 200.00 lb Pain Level 8 Pain at this time. Pain Level With Medicine 7 on average with meds Pain Level Without Medicine 10 05/12 without meds BMI (Body Mass Index) 27.9 kg/m2 10/12/2017 8:59am BP Systolic 140 mmHg BP Diastolic 86 mmHg Heart Rate 78 /min Respiratory Rate 20 /min Height 71 inches 5'11" Weight 200.00 lb Pain Level 8 Pain at this time. Pain Level With Medicine 7 on average with meds Pain Level Without Medicine 10 05/12 without meds BMI (Body Mass Index) 27.9 kg/m2 09/10/2017 1:46pm BP Systolic 136 mmHg BP Diastolic 82 mmHg Heart Rate 80 /min Respiratory Rate 20 /min Height 71 inches 5'11" Weight 210.00 lb Pain Level 8 Pain at this time. Pain Level With Medicine 7 on average with meds Pain Level Without Medicine 10 05/12 without meds BMI (Body Mass Index) 29.3 kg/m2 08/13/2017 1:56pm BP Systolic 128 mmHg BP Diastolic 84 mmHg Heart Rate 76 /min Respiratory Rate 20 /min Height 71 inches 5'11" Weight 210.00 lb Pain Level 8 Pain at this time. Pain Level With Medicine 7 on average with meds Pain Level Without Medicine 10 05/12 without meds BMI (Body Mass Index) 29.3 kg/m2 07/09/2017 10:55am BP Systolic 144 mmHg BP Diastolic 86 mmHg Heart Rate 80 /min Respiratory Rate 20 /min Height 71 inches 5'11" Weight 214.00 lb Pain Level 9 Pain at this time. Pain Level With Medicine 7 on average with meds Pain Level Without Medicine 10 05/12 without meds BMI (Body Mass Index) 29.8 kg/m2 06/09/2017 8:50am BP Systolic 130 mmHg BP Diastolic 76 mmHg Heart Rate 72 /min Respiratory Rate 20 /min Height 71 inches 5'11" Weight 214.00 lb Pain Level 7 Pain at this time. Pain Level With Medicine 6 on average with meds Pain Level Without Medicine 10 05/12 without meds BMI (Body Mass Index) 29.8 kg/m2 05/25/2017 9:29am BP Systolic 116 mmHg BP Diastolic 72 mmHg Heart Rate 72 /min Respiratory Rate 16 /min Height 71 inches 5'11" Weight 214.00 lb Pain Level 8 /, Pain at this time. Pain Level With Medicine 6 01/10, on average with meds Pain Level Without Medicine 10 05/12 without meds BMI (Body Mass Index) 29.8 kg/m2 05/04/2017 10:44am BP Systolic 142 mmHg BP Diastolic 80 mmHg Heart Rate 76 /min Respiratory Rate 16 /min Height 71 inches 5'11" Weight 214.00 lb Pain Level 9 /10, Pain at this time. Pain Level With Medicine 5 5/10, on average with meds Pain Level Without Medicine 10 05/12 without meds BMI (Body Mass Index) 29.8 kg/m2 04/02/2017 10:32am BP Systolic 136 mmHg BP Diastolic 80 mmHg Heart Rate 78 /min Respiratory Rate 16 /min Height 71 inches 5'11" Weight 214.00 lb Pain Level 9 Pain at this time. Pain Level With Medicine 5 on average with meds Pain Level Without Medicine 10 05/12 without meds BMI (Body Mass Index) 29.8 kg/m2 03/19/2017 9:48am BP Systolic 128 mmHg BP Diastolic 76 mmHg Heart Rate 74 /min Respiratory Rate 20 /min Height 71 inches 5'11" Weight 206.00 lb Pain Level 8 Pain at this time. Pain Level With Medicine 8 on average with meds Pain Level Without Medicine 10 05/12 without meds BMI (Body Mass Index) 28.7 kg/m2 03/04/2017 9:45am BP Systolic 130 mmHg BP Diastolic 72 mmHg Heart Rate 76 /min Respiratory Rate 20 /min Height 71 inches 5'11" Weight 206.00 lb Pain Level 8 Pain Level Without Medicine 10 BMI (Body Mass Index) 28.7 kg/m2 Results Description No Information Available Procedures Date Code Description Status 07/08/2018 93151 Therapeutic, Prophylactic Or Diagnostic Injection Subq/Im Completed 06/07/2018 61794 Therapeutic, Prophylactic Or Diagnostic Injection Subq/Im Completed 04/09/2018 24093 Therapeutic, Prophylactic Or Diagnostic Injection Subq/Im Completed 03/12/2018 90780 Therapeutic, Prophylactic Or Diagnostic Injection Subq/Im Completed 02/09/2018 38574 Therapeutic, Prophylactic Or Diagnostic Injection Subq/Im Completed 01/11/2018 67157 Therapeutic, Prophylactic Or Diagnostic Injection Subq/Im Completed 12/11/2017 16481 Therapeutic, Prophylactic Or Diagnostic Injection Subq/Im Completed 11/11/2017 78410 Therapeutic, Prophylactic Or Diagnostic Injection Subq/Im Completed 10/12/2017 12357 Therapeutic, Prophylactic Or Diagnostic Injection Subq/Im Completed 09/10/2017 30181 Therapeutic, Prophylactic Or Diagnostic Injection Subq/Im Completed 08/13/2017 94743 Therapeutic, Prophylactic Or Diagnostic Injection Subq/Im Completed 07/09/2017 48853 Test Autonomic Nervous System, Sudomotor Completed 06/09/2017 34224 Therapeutic, Prophylactic Or Diagnostic Injection Subq/Im Completed Encounters Type Date Location Provider Dx Diagnosis Office Visit 07/08/2018 Main Office as John Latham G89.28 Other chronic 9:45a Of 09/03/13 DO, MPH postprocedural pain M54.5 Low back pain M43.26 Fusion of spine, lumbar region R53.83 Other fatigue Z79.891 [facility] (current) use of opiate analgesic Office Visit 06/07/2018 9:30a Main Office John Latham G89.28 Other chronic as Of 09/03/13 DO, MPH postprocedural pain M43.24 Fusion of spine, thoracic region M43.26 Fusion of spine, lumbar region M54.5 Low back pain R53.83 Other fatigue Z79.891 [facility] (current) use of opiate analgesic Office Visit 05/07/2018 1:00p Main Office John Latham G89.28 Other chronic as Of 09/03/13 DO, MPH postprocedural pain 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 Office Visit 04/09/2018 9:00a Main Office John Latham G89.28 Other chronic as Of 09/03/13 DO, MPH postprocedural pain M43.24 Fusion of spine, thoracic region M43.26 Fusion of spine, lumbar region M54.5 Low back pain R53.83 Other fatigue Z79.891 [facility] (current) use of opiate analgesic Office Visit 03/12/2018 9:00a Main Office John Latham G89.28 Other chronic as Of 09/03/13 DO, MPH postprocedural pain M43.24 Fusion of spine, thoracic region M43.26 Fusion of spine, lumbar region M25.562 Pain in left knee R53.83 Other fatigue 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 Office Visit 02/09/2018 9:00a Main Office John Latham G89.28 Other chronic as Of 09/03/13 DO, MPH postprocedural pain M43.24 Fusion of spine, thoracic region M43.26 Fusion of spine, lumbar region M54.5 Low back pain R53.83 Other fatigue 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 Office Visit 01/11/2018 9:00a Main Office John Latham, G89.28 Other chronic as Of 09/03/13 DO, MPH postprocedural pain M43.26 Fusion of spine, lumbar region M43.24 Fusion of spine, thoracic region M54.5 Low back pain R53.83 Other fatigue Z79.891 [facility] (current) use of opiate analgesic Office Visit 12/11/2017 9:00a Main Office LathamJohn jerez, G89.28 Other chronic as Of 09/03/13 DO, MPH postprocedural pain M43.24 Fusion of spine, thoracic region M43.26 Fusion of spine, lumbar region M54.5 Low back pain Z71.89 Other specified counseling R53.83 Other fatigue 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 Office Visit 11/11/2017 9:00a Main Office LathamJohn jerez, G89.28 Other chronic as Of 09/03/13 DO, MPH postprocedural pain M43.24 Fusion of spine, thoracic region M43.26 Fusion of spine, lumbar region R53.83 Other fatigue Z79.891 [facility] (current) use of opiate analgesic Office Visit 10/12/2017 9:00a Main Office John Latham, G89.28 Other chronic as Of 09/03/13 DO, MPH postprocedural pain M43.24 Fusion of spine, thoracic region M43.26 Fusion of spine, lumbar region R53.83 Other fatigue Z79.891 [facility] (current) use of opiate analgesic Office Visit 09/10/2017 2:00p Main Office John Latham, G89.28 Other chronic as Of 09/03/13 DO, MPH postprocedural pain M43.26 Fusion of spine, lumbar region M43.24 Fusion of spine, thoracic region Z79.891 [facility] (current) use of opiate analgesic Z13.89 Encounter for screening for other disorder R53.83 Other fatigue Office Visit 08/13/2017 2:00p Main Office John Latham, G89.28 Other chronic as Of 09/03/13 DO, MPH postprocedural pain M43.26 Fusion of spine, lumbar region M43.24 Fusion of spine, thoracic region Z79.891 [facility] (current) use of opiate analgesic R53.83 Other fatigue Office Visit 07/09/2017 11:30a Main Office John Ltaham G89.28 Other chronic as Of 09/03/13 DO, MPH postprocedural pain M43.26 Fusion of spine, lumbar region M43.24 Fusion of spine, thoracic region N20.0 Calculus of kidney 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 G90.3 Multi-system degeneration of the autonomic nervous system Office Visit 06/09/2017 9:15a Main Office John Latham G89.28 Other chronic as Of 09/03/13 DO, MPH postprocedural pain M43.26 Fusion of spine, lumbar region M43.24 Fusion of spine, thoracic region 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 R53.83 Other fatigue Office Visit 05/25/2017 9:15a Main Office Isrrael [id number] Other chronic as Of 09/03/13 [facility], [employer] postprocedural pain M54.5 Low back pain M43.26 Fusion of spine, lumbar region M43.24 Fusion of spine, thoracic region Z71.89 Other specified counseling 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 Office Visit 05/04/2017 10:15a Main Office Isrrael [id number] Other chronic as Of 09/03/13 [facility], [employer] postprocedural pain M54.5 Low back pain M79.605 Pain in left leg M79.604 Pain in right leg Z71.89 Other specified counseling 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 Office Visit 04/02/2017 10:00a Main Office Isrrael [id number] Other chronic as Of 09/03/13 [facility], [employer] postprocedural pain M79.604 Pain in right leg M79.605 Pain in left leg M96.1 Postlaminectomy syndrome, not elsewhere classified Z71.89 Other specified counseling 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 Office Visit 03/19/2017 9:45a Main Office John Latham, G89.28 Other chronic as Of 09/03/13 PAT GOLDSMITH postprocedural pain M96.1 Postlaminectomy syndrome, not elsewhere classified M79.605 Pain in left leg M79.604 Pain in right leg Z79.891 [facility] (current) use of opiate analgesic Office Visit 03/04/2017 9:00a Main Office as John Latham G89.29 Other chronic Of 09/03/13 DO MPH pain M96.1 Postlaminectomy syndrome, not elsewhere classified M54.5 Low back pain E11.42 Type 2 diabetes mellitus with diabetic polyneuropathy M79.605 Pain in left leg M79.604 Pain in right leg G89.28 Other chronic postprocedural pain M25.562 Pain in left knee Z79.891 [facility] (current) use of opiate analgesic Plan of Treatment Future Appointment(s):08/18/2018 10:15 am - John Latham DO MPH at Main Office as Of 09/03/1402 9:00 am - John Latham DO MPH at Main Office as Of 09/03/1401 9:15 am - John Latham DO, MPH at Main Office as Of 09/03 - John Latham DO, MPHG89.28 Other chronic postprocedural painComments:Chronic. Symptoms and complaints discussed and reviewed today. No significant changes in physical findings. Continue current medical pain management.M54.5 Low back painComments:Chronic. Symptoms and complaints discussed and reviewed today.No changes in physical findings. Patient is stable and comfortable when current medical therapy is rendered.M43.26 Fusion of spine , lumbar regionComments:Chronic. Symptoms and complaints discussed and reviewed today. No significant changes in physical findings. Continue current medical pain management.Z71.89 Other specified counselingComments:Patient counseled to not use substances for pain relief other than those prescribed, to follow directions and to take medications only as they are prescribed.Reviewed Medication Agreement and requirements for patient to continue receiving opioid therapy. Patient clearly understands and agrees. It is clearly understood that violation of the above is grounds for possible discharge.R53.83 Other fatigueComments:Symptoms and complaints discussed and reviewed today. No significant changes in physical findings. Continue current medical pain management. B12 injection administered after patient evaluated. 1ml IM for fatigue. (See Consent for injection-B12 document for lot number and expiration date.)Z79.891 [facility] (current) use of opiate analgesicNew Labs:Urine Drug Screen, Ordered: 08/06/18Comments:Urine drug screen sample taken today to monitor opiate use and to monitor use of illicit substances.Will discuss results at next appointment.The following tests were ordered:6 AM, AMPH, NEETU, MING, BUP, CARIS, COCM, COT, ETG, FENT, MCSHSG, OPI, OXY, PCP, TAPEN, XTSY, ZOLP. ~I_A urine drug test (UDT) was ordered for this patient and collected on site today. Creatinine has been ordered as well for specimen validity, not for kidney function. Preliminary UDT results are not final and should not be used to determine patient care or plan of treatment. Initially a qualitative immunoassay screen will be done. Any inconsistent or positive findings will be further tested with a more comprehensive quantitative confirmation LCMS study. It is part of the treatment process of prescribing controlled substances and is considered standard of care.~i_AllComments:All above symptoms and complaints discussed as well as diagnoses reviewed.Continue trial of opioid pain management - note changes below; injection therapy, osteopathic manipulation (OMT), PT / modalities, and consults as needed to manage chronic pain.Side effects discussed; anticipatory guidance given. Patient clearly understands and agrees with all medical treatments and suggestions. All medicines prescribed are adequate and appropriate for this patient's complaint of pain, medical history, physical, and personal goals.Goals of Treatment are to provide adequate and appropriate multidisciplinary medical pain management to increase/ maintain patient's quality of life and functionality while maintaining satisfactory side effect profile and minimizing skilled nursing end-organ damage. Activity as toleratedContinue with PCP
[2018-08-10 18:48] LABS: ABS Basophils 0.1 10^3/ul (0-0.2); ABS Eosinophils 0.1 10^3/ul (0-0.6); ABS Monocytes 1.5 10^3/ul (0-0.8); ABS Neutrophils 11.8 10^3/ul (1.5-7.7); ABS Nucleated RBC 0 10^3/ul; Eosinophil % 0.5 %; Hematocrit 33 % (42-52); Hemoglobin 11.1 g/dl (14.0-18.0); Lymphocyte % 6.8 %; Mean Corpuscular HGB Conc 34 g/dl (31-36); Mean Corpuscular Hemoglobin 31 pg (27-31); Mean Corpuscular Volume 93 fL (80-94); Nucleated Red Blood Cells % 0; Platelet Count 232 10^3/ul (150-450); Red Blood Count 3.57 10^6/ul (4.00-5.40); Red Cell Distribution Width 13 % (10.5-15); White Blood Count 14.4 10^3/ul (3.5-10.8)
[2018-08-10 19:06] LABS: Albumin 3.9 g/dL (3.2-5.2); Albumin/Globulin Ratio 1.6 (1-3); BUN/Creatinine Ratio 27.2 (8-20); C Reactive Protein 144.63 mg/L (<8.01); Calcium 9.3 mg/dL (8.6-10.3); EGFR Non-African American 17.8 (>60); Globulin 2.4 g/dL (2-4); Total Bilirubin 0.4 mg/dL (0.2-1.0); Total Protein 6.3 g/dL (6.4-8.9)
[2018-08-10 19:13] LABS: Potassium 5.9 mmol/L (3.5-5.0)
[2018-08-10 19:15] LABS: Activated Partial Thrombo Time 28.3 seconds (26.0-36.3); Fibrinogen 606.6 mg/dL (110.8-404.3); INR 0.95 (0.77-1.02)
[2018-08-10 19:30] LABS: Urine Appearance Clear; Urine Bilirubin Negative (Negative); Urine Blood Negative (Negative); Urine Color Yellow; Urine Glucose Negative (Negative); Urine Ketones Negative (Negative); Urine Nitrite Negative (Negative); Urine Protein Negative (Negative); Urine Specific Gravity 1.008 (1.010-1.030); Urine Urobilinogen Negative (Negative)
[2018-08-10 19:34] LABS: Erythrocyte Sed Rate 39 mm/Hr (0-20)
[2018-08-10] MEDS ORDERED: Dextrose 50% Syringe 50 ML* 25 GM/50 ML SYRINGE IV PUSH PRN (20:30)
[2018-08-10] MEDS ORDERED: Al Hydrox/Mg Hydrox/Simet LIQ* 30 ML UDC PO ONE (21:11)
[2018-08-10] MEDS ORDERED: Albuterol 0.5% CONC NEB.SOL* 5 MG/ML 20 ml BOT INH ONE (21:15)
[2018-08-10] MEDS ORDERED: Calcium Gluconate INJ* 1 GM in NS 0.9% 100 ML* 100 ML IVPB ONE (21:15)
[2018-08-10] MEDS ORDERED: Patiromer POWDER* 8.4 GM PAK PO ONE (21:18)
[2018-08-10] MEDS: Insulin LISPRO* 1 UNITS UNIT SUBCUT SCH (22:05)
[2018-08-10] MEDS ORDERED: Azithromycin TAB* 250 MG PO ONE (22:16)
[2018-08-10] MEDS ORDERED: Pantoprazole TAB * 40 MG TAB PO ONE (22:21)
[2018-08-10] MEDS ORDERED: Sodium Bicarbonate 8.4% IV* 50 MEQ in NS 0.9% 1000 ML* 1,000 ML IV ONE (22:30)
[2018-08-10] MEDS: DOXYcycline CAP(*) 100 MG PO SCH (23:56)
[2018-08-10] MEDS: oxyCODONE TAB* 5 MG TAB PO PRN (23:57)
[2018-08-10] MEDS: Nicotine PATCH 14 MG/24 HR* PATCH TRANSDERM SCH (23:59)
[2018-08-11] MEDS: oxyCODONE SR TAB(*) 20 MG TAB.SR PO SCH ×3 (00:06→21:26)
[2018-08-11 00:37] LABS: Urine Creatinine Concentration 32.89 mg/dL
--- NOTE | 2018-08-11 01:15 | HP ---
HISTORY AND PHYSICAL: DATE OF ADMISSION: 08/10/18 ADMITTING PROVIDER: Bipin Bahena MD. PRIMARY CARE PROVIDER: Oanh Whitaker MD. PATIENT'S PAIN DOCTOR: Dr. John Latham. CHIEF COMPLAINT: Altered mental status, substernal indigestion/chest pain. HISTORY OF PRESENT ILLNESS: Edy Schmid is a 63-year-old male with past medical history of insulin-dependent diabetes mellitus type 2, hypertension, hyperlipidemia, chronic back pain (on chronic opioid therapies), chronic left knee group B strep infection(on chronic doxycycline), anxiety, depression who for the last 2 or 3 days has been having episodes of incoherence and confusion per Colten who is at bedside. He is a poor historian. He has had shaking spells that last about 30 seconds each, multiple times per day. Daughter-in- law noted that he fell asleep both sitting and once while "standing up". Around 2 a.m. on the day of admission, he was found standing with the front door open, profusely sweating. He does not remember this incident. He has not drunk or eaten anything today and skipped his insulin dosing and his blood sugar was 132 at noon. Upon presentation to the emergency room, he was found to have an elevated creatinine of 3.49, up from baseline of 0.8, with a GFR of 17.8 and a potassium of 5.9. He has had a leukocytosis of 14.4, CRP of 145, ESR of 39, and was referred to the hospitalist service for admission for acute renal failure and acute urinary retention. Bladder scan was done in the ED and which quickly put out 1300 upon placement of Tomlinson catheter. He does not remember if he urinated or not today. He does attest to also productive cough for the last few days. He fell approximately 7 days ago in the restroom while urinating and "blacked out" and his had to assist him up. In the emergency room, he did have a CT head (noncontrast), which showed no acute injury. He also attests to some indigestion-like or burning-like chest pain as if "liquid" is coming back up ever so often. Consuelo does report history of a possible hiatal hernia about 10 years ago that seemed to have resolved. He does seem to have been started on amitriptyline since his last visit here at [address] Latham and receiving prescriptions from 06/07/18 and 07/08/18. I am not sure exactly of the start date of that and neither do they know. PAST MEDICAL HISTORY: Hypertension, hyperlipidemia, chronic back pain; on opioid medications, chronic left knee group B strep infection; on doxycycline suppression, anxiety, depression, insulin-dependant type 2 diabetes, and anterior cervical diskectomy. He has 35 pack years, current smoker (denies any previous COPD dx) MEDICATIONS: Include: 1. Oxycodone extended release 20 mg twice a day. 2. Oxycodone 10 mg 1 to 2 tabs every 8 hours p.r.n. 3. Amitriptyline 25 mg q.p.m. 4. Lisinopril 20 mg daily. 5. Tamsulosin 0.4 mg p.o. daily. 6. Lyrica 100 mg p.o. t.i.d. 7. Doxycycline 100 mg p.o. b.i.d. 8. Atorvastatin 40 mg p.o. at bedtime. 9. Lispro sliding scale q.a.c. He is not able to tell me the scale currently. 10. Duloxetine (Cymbalta) 60 mg p.o. b.i.d. 11. Flexeril 10 mg p.o. t.i.d. p.r.n. 12. Bupropion 300 mg p.o. daily. 13. Lantus between 52 and 62 units per night, although the patient is a very poor historian and previous dosing was listed as 42 units. ALLERGIES: CEFTRIAXONE was listed as severe itching. He describes a pill that he takes that caused burning with swallowing, however. FAMILY HISTORY: His father of emphysema at age 62. SOCIAL HISTORY: The patient is a current smoker of 1 pack per day, smoked for about 35 years. Denies any alcohol or drug use. 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 He has 3 children and 4 stepchildren. Scarlet, goes by Colten, is his health care proxy. He desires to be a full code. REVIEW OF SYSTEMS: Complete 14-point review of systems was negative, except as per HPI. He denies any abdominal pain, diarrhea, or constipation. He does have a tremor or shakiness which seems to be worsening recently. Denies any headaches or vision changes. PHYSICAL EXAMINATION GENERAL APPEARANCE: In no acute distress, sitting on the hospital bed. VITAL SIGNS: Initially, temperature 97.9, heart rate 92; max of 108, respiratory rate 14 to 26, satting between 89% and 99% on room air, blood pressure 95/54 initially. HEENT: Normocephalic and atraumatic. Pupils are equal, round, and reactive to light and accommodation. Extraocular motions are intact. No scleral icterus. Moist mucous membranes. No cervical lymphadenopathy. NECK: Supple. LUNGS: No wheezing, rales, or rhonchi; but fairly distant lung sounds. CARDIOVASCULAR: Regular rate and rhythm. No murmurs, rubs, or gallops. ABDOMEN: Soft, nontender, and nondistended. EXTREMITIES: Warm and well perfused with no peripheral edema. There are longitudinal scars at both knees. No warmth or effusions appreciated. NEUROLOGIC: He is markedly dysmetric with [id number] on both sides. No ocular clonus. Cranial nerves II through XII intact. No inducible clonus. LABORATORY DATA: White count 14.4, hemoglobin 11.1, hematocrit 33, INR of 0.95. Sodium 133, potassium 5.9, chloride 103, carbon dioxide 22, BUN 95, creatinine 3.49, glucose 105, lactic acid 1.1. Total bili 0.4, AST 11, ALT 11, alk phos 83. Troponin 0.01, CRP 144, BNP 85. Albumin 3.9. Urinalysis within normal limits, except specific gravity low at 1.008. Influenza A and B negative. IMAGING: CT head noncontrast, no acute process. Chest x-ray: Official read ispending. May have a mild left perihilar fullness compared to previous study. Clear costal margins, no effusions. No clear infiltrates. EKG demonstrated normal sinus rhythm, rate 189, normal axes, poor R-wave progression, QTc of 413, QRS 144 with borderline intraventricular conduction delay. T waves just slightly sharper than baseline prior. ASSESSMENT AND PLAN: Edy Schmid is a 63-year-old male with a past medical history of hypertension, hyperlipidemia, on chronic pain meds, insulin- dependent diabetes type 2, chronic doxy suppression for group B strep knee infection, anxiety, and depression presenting with confusion x3 days, shaky spells, acute urinary retention, acute renal failure, creatinine of 3.49. I am somewhat suspicious that medication side effect may be playing a role especially with the, I think, relatively recent introduction of amitriptyline, which may have some anticholinergic side effects including urinary retention. He has got a Tomlinson and I am going to add a urine sodium and urine creatinine. Continue IV fluids. Repeat a BMP with the next troponin draw for his hyperkalemia, which is potassium 5.9. He has just mildly sharper T waves and I am going to give him some calcium gluconate and albuterol inhalers. Unfortunately, there is still shortage on Kayexalate, so substitute for patiromer powder and add an amp of sodium bicarb amp. I am going to hold off on any insulin or dextrose given his acute renal failure, which will make management of his sugars more problematic. I will put him on telemetry. I suspect his renal failure will improve now that the acute urinary retention with the Tomlinson is resolving that. He does have a history of acute renal failure before, in the past. For his confusion and shakiness spells/tremors I have some concern for medication side effect versus infection. Follow up blood cultures. He is to continue his doxycycline. He does have leukocytosis and elevated CRP. Consideration to broaden antibiotics if he clinically decompensates, but we will maintain doxy 100 b.i.d. for now. His urinalysis notably did not show any signs of infection despite the urinary retention. I am adding on procalcitonin (though if we no longer do this in house it will be less useful clinically). He does have a productive cough. He has a long history of smoking. He does not carry a diagnosis of COPD, but I am going to add azithromycin for potential COPD exacerbation component. Get a sputum culture. Follow-up official CXR read. He is a 3-qwmu-vak-day smoker and will add a nicotine patch. I am going to have to renally adjust many of his psych and pain meds. I am reducing his Lyrica from 100 t.i.d. to 50 daily, can likely increase if, as suspected, his renal function improves. I am holding his Cymbalta and reducing his bupropion in half to 150 daily based on renal dose recommendation. I am putting him on a sliding scale insulin and holding his Lantus for now given that he has not had anything to eat all day and his sugars are 105. His last A1c notably was 7.9 in July 2016. Continue his Flomax. Hold his lisinopril 20 mg in the setting of acute renal failure. Monitor blood pressures; it is on the low side now. Continue his Flexeril 10 t.i.d. His chest pain seems more GI related - will trend troponins, add Maalox Plus and protonix. He is a full code. He will have carbohydrate consistent diet. Medical surrogate is , Colten Schmid. [id number]/CPS #: [id number] TOÑO
[2018-08-11] MEDS: NS 0.9% 1000 ML* 1,000 ML IV SCH ×2 (03:04→10:57)
[2018-08-11] MEDS ORDERED: Albuterol/Ipratropium NEB.SOL* Albuterol 2.5 MG/Ipratropium 0.5 MG 3 ML INH PRN (04:09)
[2018-08-11] MEDS ORDERED: Acetaminophen TAB* 325 MG PO PRN (04:54)
[2018-08-11] MEDS: Cyclobenzaprine TAB* 10 MG PO PRN ×2 (07:31→15:53)
[2018-08-11] MEDS: Azithromycin TAB* 250 MG PO SCH (07:32)
[2018-08-11] MEDS: DOXYcycline CAP(*) 100 MG PO SCH ×2 (07:32→21:26)
[2018-08-11] MEDS: Pregabalin CAP(*) 50 MG PO SCH (07:32)
[2018-08-11] MEDS: Pantoprazole TAB * 40 MG TAB PO SCH (07:32)
[2018-08-11] MEDS: buPROPion TAB* 75 MG PO SCH (07:32)
[2018-08-11] MEDS: Tamsulosin CAP* 0.4 MG PO SCH (07:33)
[2018-08-11] MEDS: Nicotine PATCH 14 MG/24 HR* PATCH TRANSDERM SCH (07:35)
[2018-08-11 08:30] LABS: ABS Basophils 0 10^3/ul (0-0.2); ABS Eosinophils 0 10^3/ul (0-0.6); ABS Lymphocytes 0.6 10^3/ul (1.0-4.8); ABS Monocytes 0.7 10^3/ul (0-0.8); ABS Neutrophils 8.6 10^3/ul (1.5-7.7); ABS Nucleated RBC 0 10^3/ul; Eosinophil % 0.4 %; Hematocrit 36 % (42-52); Hemoglobin 11.8 g/dl (14.0-18.0); Lymphocyte % 6.2 %; Mean Corpuscular HGB Conc 33 g/dl (31-36); Mean Corpuscular Hemoglobin 30 pg (27-31); Mean Corpuscular Volume 92 fL (80-94); Mean Platelet Volume 10.1 fL (7.4-10.4); Nucleated Red Blood Cells % 0; Platelet Count 233 10^3/ul (150-450); Red Blood Count 3.89 10^6/ul (4.00-5.40); Red Cell Distribution Width 13 % (10.5-15)
[2018-08-11 08:47] LABS: BUN/Creatinine Ratio 45.1 (8-20); Calcium 9.1 mg/dL (8.6-10.3); EGFR Non-African American 65.3 (>60); Potassium 4.7 mmol/L (3.5-5.0)
[2018-08-11] MEDS ORDERED: Pneumococcal *Vac Polyvalent 0.5 ML VIAL IM ONE (09:00)
[2018-08-11] MEDS: Insulin LISPRO* 1 UNITS UNIT SUBCUT SCH ×4 (09:02→21:44)
[2018-08-11] MEDS ORDERED: Al Hydrox/Mg Hydrox/Simet LIQ* 30 ML UDC PO PRN (09:48)
[2018-08-11] MEDS ORDERED: Enoxaparin(*) 40 MG/0.4 ML SYR SUBCUT SCH (12:00)
[2018-08-11] MEDS: Lactobacillus Acidophilus* 1 TAB PO SCH (12:05)
[2018-08-11] MEDS: oxyCODONE/Acetamin 5/325 MG* TAB PO PRN (12:05)
--- NOTE | 2018-08-11 12:09 | PN ---
Subjective Date of Service: 08/11/18 Interval History: Pt seen and examined. Meds and labs reviewed. CC: Dyspepsia and gets upper anterior CP when coughing ROS: Denied LIRA/dizziness, F/C, N/V, CP, SOB, sputum production, abd pain, diarrhea, constipation, dysuria, myalgias, arthralgias, throat pain, and new skin lesions. The rest of the 14 point ROS are unremarkable. PHYSICAL EXAM: GEN APPEARANCE: Awake, not in acute distress, oriented to person only HEENT: NC/AT, PERRLA, moist oral mucosa, (-) throat erythema NECK: Soft, supple, (-) cervical LAD, (-)JVD HEART: S1S2 WNL, RRR, No MRG CHEST: CTA, BL, GAE, No W/R/R, (+)tender anterior upper Chest tenderness ABD: Soft, ND/(+)epigastric tenderness, NABS 4x Q EXT: No C/C/E SKIN: Warm to touch PSYCH: No active psychosis, hallucinations, depression, SI/HI Objective Active Medications: Acetaminophen (Tylenol Tab*) 650 mg PO Q6H PRN PRN Reason: HEADACHE/PAIN Last Admin: 08/11/18 07:33 Dose: 650 mg Al Hydrox/Mg Hydrox/Simethicone (Maalox Plus*) 30 ml PO Q6H PRN PRN Reason: DYSPEPSIA Albuterol/Ipratropium (Duoneb (Albuterol 2.5 Mg/Ipratropium 0.5 Mg)) 1 neb INH Q6H PRN PRN Reason: SOB/WHEEZING Atorvastatin Calcium (Lipitor*) 40 mg PO 2100 EL Azithromycin (Zithromax Tab*) 250 mg PO DAILY [facility] Last Admin: 08/11/18 07:32 Dose: 250 mg Bupropion HCl (Wellbutrin Tab*) 150 mg PO DAILY [facility] Last Admin: 08/11/18 07:32 Dose: 150 mg Cyclobenzaprine HCl (Flexeril Tab*) 10 mg PO TID PRN PRN Reason: SPASMS Last Admin: 08/11/18 07:31 Dose: 10 mg Dextrose (D50w Syringe 50 Ml*) 12.5 gm IV PUSH .FOR FS < 60 - SS PRN PRN Reason: FS < 60 Doxycycline Hyclate (Vibramycin Cap(*)) 100 mg PO BID [facility] Last Admin: 08/11/18 07:32 Dose: 100 mg Enoxaparin Sodium (Lovenox(*)) 40 mg SUBCUT Q24H [facility] Sodium Chloride (Ns 0.9% 1000 Ml*) 1,000 mls @ 125 mls/hr IV PER RATE [facility] Stop: 08/11/18 15:29 Last Admin: 08/11/18 10:57 Dose: 125 mls/hr Insulin Human Lispro (Humalog*) 0 units SUBCUT ACHS [facility]; Protocol Last Admin: 08/11/18 09:02 Dose: 2 units Lactobacillus Rhamnosus (Lactobacillus Acidophilus*) 1 tab PO DAILY [facility] Nicotine (Nicotine Patch 14 Mg/24 Hr*) 1 patch TRANSDERM DAILY [facility] Last Admin: 08/11/18 07:35 Dose: 1 patch Oxycodone HCl (Roxycodone Tab*) 10 mg PO Q12H PRN PRN Reason: PAIN Last Admin: 08/10/18 23:57 Dose: 10 mg Oxycodone HCl (Oxycontin(*)) 20 mg PO BID [facility] Last Admin: 08/11/18 07:31 Dose: 20 mg Oxycodone/Acetaminophen (Percocet 5/325 Tab*) 1 tab PO Q6H PRN PRN Reason: PAIN Pantoprazole Sodium (Protonix Tab *) 40 mg PO DAILY [facility] Last Admin: 08/11/18 07:32 Dose: 40 mg Pharmacy Profile Note (Nicotine Patch Removal Note*) 1 note PATCH OFF 2100 [facility] Pregabalin (Lyrica Cap(*)) 50 mg PO DAILY [facility] Last Admin: 08/11/18 07:32 Dose: 50 mg Tamsulosin HCl (Flomax Cap*) 0.4 mg PO DAILY [facility] Last Admin: 08/11/18 07:33 Dose: 0.4 mg Vital Signs - 8 hr 08/11/18 08/11/18 08/11/18 07:31 07:32 07:46 Temperature Pulse Rate Respiratory 18 18 18 Rate Blood Pressure (mmHg) O2 Sat by Pulse Oximetry 08/11/18 08/11/18 08/11/18 08:00 08:26 09:56 Temperature 97.8 F Pulse Rate 89 Respiratory 16 18 Rate Blood Pressure 136/68 (mmHg) O2 Sat by Pulse 98 98 Oximetry 08/11/18 11:05 Temperature 97.8 F Pulse Rate 92 Respiratory 16 Rate Blood Pressure 144/68 (mmHg) O2 Sat by Pulse 97 Oximetry Oxygen Devices in Use Now: None Result Diagrams: 08/11/18 08:15 08/11/18 08:15 Microbiology and Other Data: Microbiology 08/11/18 05:55 Nasal Screen MRSA (PCR) - Final Nasal Mrsa Not Detected 08/10/18 22:55 Gram Stain - Final Sputum Expectorated 08/10/18 18:36 Influenza Types A,B Antigen - Final Nasal Specimen received for Influenza A/B Molecular testing Assess/Plan/Problems-Billing Assessment: - Patient Problems (1) Change in mental status Current Visit: Yes Status: Acute Code(s): R41.82 - ALTERED MENTAL STATUS, UNSPECIFIED SNOMED Code(s): 746620256 Comment: -Likely due to recent addition of amitriptyline to his outpatient regimen -For TSH, MMA/B12 levels -For Urine drug screen -Continue watchful waiting (2) Dyspepsia Current Visit: Yes Status: Acute Code(s): R10.13 - EPIGASTRIC PAIN SNOMED Code(s): 042942135 Comment: -Continue Pantoprazole -Will place pt on PRN Maalox plus (3) Chest pain Current Visit: Yes Status: Acute Code(s): R07.9 - CHEST PAIN, UNSPECIFIED SNOMED Code(s): 17811905 Comment: -For repeat EKG, troponins -Likely musculoskeletal given reproducibility and history -Continue watchful waiting (4) OTILIA (acute kidney injury) Current Visit: No Status: Acute Priority: High Code(s): N17.9 - ACUTE KIDNEY FAILURE, UNSPECIFIED SNOMED Code(s): 39415009 Comment: -Improved -Continue IVF (5) Infection of left knee Current Visit: Yes Status: Acute Code(s): M00.9 - PYOGENIC ARTHRITIS, UNSPECIFIED SNOMED Code(s): 065481135 Comment: #Chronic L. Knee group B strep infection: -Continue Doxycycline -Placed pt on Lactobacillus supplements for C. diff prophylaxis (6) DVT prophylaxis Current Visit: Yes Status: Acute Code(s): YFV5525 - SNOMED Code(s): 808426213 Comment: -Placed pt on Lovenox Status and Disposition: -For PT eval
[2018-08-11 12:50] LABS: TSH (Thyroid Stimulating Horm) 0.81 mcIU/mL (0.34-5.60)
[2018-08-11] MEDS: oxyCODONE TAB* 5 MG TAB PO PRN (15:53)
[2018-08-11] MEDS: Saline NASAL SPRAY 0.65%* BTL BOTH NARES PRN ×2 (17:39→21:27)
[2018-08-11] MEDS ORDERED: Nicotine Patch Removal NOTE PATCH OFF SCH (21:00)
[2018-08-11] MEDS ORDERED: Atorvastatin* 40 MG TAB PO SCH (21:00)
[2018-08-11] MEDS ORDERED: Melatonin 3 MG TAB PO ONE (22:00)
[2018-08-12] MEDS: Saline NASAL SPRAY 0.65%* BTL BOTH NARES PRN ×2 (01:47→08:49)
[2018-08-12] MEDS: Cyclobenzaprine TAB* 10 MG PO PRN (01:48)
[2018-08-12] MEDS: oxyCODONE/Acetamin 5/325 MG* TAB PO PRN ×2 (01:52→08:48)
[2018-08-12 06:42] LABS: ABS Basophils 0.1 10^3/ul (0-0.2); ABS Eosinophils 0 10^3/ul (0-0.6); ABS Lymphocytes 1.2 10^3/ul (1.0-4.8); ABS Monocytes 0.9 10^3/ul (0-0.8); ABS Neutrophils 8.1 10^3/ul (1.5-7.7); ABS Nucleated RBC 0 10^3/ul; Eosinophil % 0.3 %; Hematocrit 34 % (42-52); Hemoglobin 11.4 g/dl (14.0-18.0); Mean Corpuscular HGB Conc 33 g/dl (31-36); Mean Corpuscular Hemoglobin 30 pg (27-31); Mean Corpuscular Volume 91 fL (80-94); Nucleated Red Blood Cells % 0; Platelet Count 244 10^3/ul (150-450); Red Blood Count 3.74 10^6/ul (4.00-5.40); Red Cell Distribution Width 13 % (10.5-15); White Blood Count 10.3 10^3/ul (3.5-10.8)
[2018-08-12 07:02] LABS: Calcium 9.5 mg/dL (8.6-10.3); EGFR Non-African American 97.3 (>60); Potassium 4.2 mmol/L (3.5-5.0)
[2018-08-12] MEDS: DOXYcycline CAP(*) 100 MG PO SCH (08:46)
[2018-08-12] MEDS: Azithromycin TAB* 250 MG PO SCH (08:47)
[2018-08-12] MEDS: Pregabalin CAP(*) 50 MG PO SCH (08:47)
[2018-08-12] MEDS: Tamsulosin CAP* 0.4 MG PO SCH (08:47)
[2018-08-12] MEDS: Pantoprazole TAB * 40 MG TAB PO SCH (08:47)
[2018-08-12] MEDS: Lactobacillus Acidophilus* 1 TAB PO SCH (08:48)
[2018-08-12] MEDS: buPROPion TAB* 75 MG PO SCH (08:48)
[2018-08-12] MEDS: oxyCODONE SR TAB(*) 20 MG TAB.SR PO SCH (08:48)
[2018-08-12] MEDS: Nicotine PATCH 14 MG/24 HR* PATCH TRANSDERM SCH (08:48)
[2018-08-12] MEDS: Insulin LISPRO* 1 UNITS UNIT SUBCUT SCH (08:51)
[2018-08-12] MEDS ORDERED: amLODIPine TAB* 5 MG PO SCH (09:00)
[2018-08-12 11:25] VITALS: BP 147/82
--- NOTE | 2018-08-12 16:14 | DS ---
CC: Dr. Bipin Bahena; Dr. Boo Montoya; Dr. Oanh Whitaker DISCHARGE SUMMARY: DATE OF ADMISSION: DATE OF DISCHARGE: 08/12/18 DISCHARGE DIAGNOSES: As follows: 1. Acute mental status change and urinary retention, likely due to amitriptyline, resolved. 2. Dyspepsia, improved. 3. Renal insufficiency, improved, likely due to urinary retention and decreased p.o. intake. 4. Reproducible chest pain, likely musculoskeletal. Acute coronary syndrome has been ruled out with troponins negative x6. DISCHARGE MEDICATIONS: As follows: 1. Amlodipine 7.5 mg p.o. daily. 2. Atorvastatin 40 mg p.o. daily. 3. Bupropion 150 mg p.o. daily. 4. Cyclobenzaprine 10 mg p.o. t.i.d. 5. Doxycycline 100 mg p.o. b.i.d. 6. Lactobacillus acidophilus 1 tab p.o. daily. 7. Nicotine patch 14 mg patch daily. 8. Oxycodone 1 tab p.o. b.i.d. 9. Oxycodone tab 10 to 20 mg p.o. q.8 hours p.r.n. 10. Pantoprazole 40 mg p.o. daily. 11. Pregabalin 50 mg p.o. daily. 12. Tamsulosin 0.4 mg p.o. daily. 13. Insulin lispro and insulin glargine 42 units subQ q.h.s. HISTORY OF PRESENT ILLNESS/HOSPITAL COURSE: The patient is a 63-year-old gentleman with hi story of insulin-dependent diabetes mellitus type 2, hypertension, and hyperlipidemia, who was admitt ed for altered mental status change and substernal indigestion/chest pain. He mentioned that he had recently been prescribed with amitriptyline last July with no other med changes and mentioned tank t he has had bouts of shaking spells that lasted about 30 seconds, multiple times a day, a few days p rior to admission, although he was less than specific on which day that was. He also began profusely sweating which made the family very concerned and who brought him to the emergency department where he was found to be confused and brain CT was otherwise unremarkable. His mental confusion is likely due to amitriptyline on top of his polypharmacy and hence his medications that he has been on for denny te some time were decreased in dose and amitriptyline has been discontinued, causing resolution of hi s mental status change. Its anticholinergic effect likely led to his renal failure with subsequent p ost-renal obstruction and decreased p.o. intake causing acute renal failure. Hence, lisinopril was w ithheld at this time and he was subsequently placed on amlodipine until PCP can further reevaluate hi s risk and may consider JORI inhibitor retreatment in the future given he is a diabetic. His chest pa in was also ruled out for acute coronary syndrome and was found to be reproducible and had some compo nents of dyspepsia as well. Hence, his chest pain is thought to be due to non-cardiac cause given its reproducibility and association with dyspepsia that improved with pantoprazole. He was advised to follow up and/or call his PCP within 3 days post discharge and could not take amitr iptyline again and any medications that can cause severe anticholinergic effects. He was advised to follow up and touch base with his physician to discuss this further. He was advised to stop his philip nopril for now, which will then be replaced with amlodipine and given he is a diabetic, as discussed, JORI inhibitors are preferred and this can certainly be reconsidered to be re-prescribed by his PCP i n the future assuming no other risks are found. Some of his medications have been explained can inte ract with one another that makes it more likely for him to get confused, especially when amitriptylin e is added. He has been informed that these have been reduced in dose and will defer any future chowdhury ges if need arises with the patient's PCP on reevaluation. He was advised that if his symptoms resum e or develop new ones or feel unwell for any reasons, to call his PCP first and if his PCP cannot ent ertain him due to scheduling issues alone, to call [facility] if the issue is non-emergent. He was advised to call my office regarding any questions, concerns, or further clarifications regardi ng his discharge plans and/or prescriptions and to take his medications as prescribed. REVIEW OF SYSTEMS: The patient denied any current headaches, dizziness, fevers, chills, nausea, vomi ting, chest pain, shortness of breath, increased coughing or sputum production, abdominal pain, diarr hea, constipation, pain and/or increased frequency on urination, myalgias, arthralgias, throat pain, or new skin lesions. The rest of the 14-point review of systems are otherwise unremarkable. PHYSICAL EXAMINATION: Shows the most recent vital signs of record with blood pressure of 147/82, 98 degrees Fahrenheit, 97 beats per minute heart rate, 16 per minute respiratory rate, saturating at 96% room air. General Appearance: The patient is awake, alert, and oriented x3, not in acute distress. HEENT: Normocephalic, atraumatic. PERRLA. Extraocular muscles intact. Negative for icterus. Clint st oral mucosa. Negative throat erythema. Neck is soft, supple, with no cervical lymphadenopathy, n o JVD. Heart: S1, S2, within normal limits. Regular rate and rhythm. No murmurs, rubs, and gallops . Chest: Clear to auscultation bilaterally. Good air entry. No wheezes, rales, or rhonchi. Abdom en is soft, nondistended, nontender. Normoactive bowel sounds x4 quadrants. Extremities: No cyanos is, clubbing, or edema. Psychiatric: No active psychosis, depression, suicidal or homicidal ideatio n. Skin is warm to touch. TIME SPENT: The total time spent evaluating the patient, reviewing pertinent data, and appropriate d ocumentation is 55 minutes. [id number]/[facility] #: [id number]
[2018-08-14 13:24] LABS: Adulterants Comment Normal; Creatinine, Urine 36.1 mg/dL; Fentanyl, Ur Not Detected ng/mL (Cutoff: 2); Hydrocodone, Ur Not Detected ng/mL (Cutoff: 25); Hydromorphone, Ur Not Detected ng/mL (Cutoff: 25); Morphine, Ur Not Detected ng/mL (Cutoff: 25); Norfentanyl, Ur Not Detected ng/mL (Cutoff: 2); Oxycodone, Ur Present ng/mL (Cutoff: 25); Specific Gravity 1.012; Tramadol, Ur Not Detected ng/mL (Cutoff: 25); Urine Barbiturates Negative; Urine Benzodiazepines Negative; Urine Cocaine Negative; Urine Phencyclidine Negative ng/mL (Cutoff: 25); Urine Tetrahydrocannabinol Negative ng/mL (Cutoff: 50)
== END 2018-08-12 12:00 | disposition home or self-care (01) | DRG 683 ==
LOC: ED 17:19 → MED 20:25
PROVIDERS: ADMIT Internal Medicine; ATTEND Student in an Organized Health Care Education/Training Program
DX: N17.9 Acute kidney failure, unspecified (principal); M00.262 Other streptococcal arthritis, left knee; R33.0 Drug induced retention of urine; I10 Essential (primary) hypertension; M19.90 Unspecified osteoarthritis, unspecified site; G89.29 Other chronic pain; E11.40 Type 2 diabetes mellitus with diabetic neuropathy, unspecified; F41.9 Anxiety disorder, unspecified; F32.9 Major depressive disorder, single episode, unspecified; F17.210 Nicotine dependence, cigarettes, uncomplicated; E87.5 Hyperkalemia; R41.82 Altered mental status, unspecified; R07.89 Other chest pain; M54.9 Dorsalgia, unspecified; T43.015A Adverse effect of tricyclic antidepressants, initial encounter; N28.89 Other specified disorders of kidney and ureter; R10.13 Epigastric pain; B95.1 Streptococcus, group B, as the cause of diseases classified elsewhere; Y92.009 Unspecified place in unspecified non-institutional (private) residence as the place of occurrence of the external cause; Z87.442 Personal history of urinary calculi; Z86.14 Personal history of Methicillin resistant Staphylococcus aureus infection; Z98.42 Cataract extraction status, left eye; Z98.41 Cataract extraction status, right eye; Z79.4 Long term (current) use of insulin
CPT/HCPCS: 36415; 70450; 71045; 80048; 80053; 80307; 80364; 81003; 82550; 82570; 82607; 83605; 83880; 83921; 84145; 84300; 84443; 84484; 85025; 85384; 85610; 85652; 85730; 86140; 87040; 87070; 87077; 87205; 87641; 90732; 93005; 94640; 99284; A9270-GY; G0480; G8978-GP-CJ; G8979-GP-CI; J0610; J1650

== ENCOUNTER 2018-10-08 11:09 | Emergency (ER) | payer MEDICARE, BC ==
--- OUTSIDE RECORDS SUMMARY | 2018-10-08 11:25 | XMS REPORT | Continuity of Care Document ---
:1955 External Reference #:[id number] Author Name John Latham DO, MPH Address [address] [place] [address], [address] [place] [address] Care Team Providers Name Role Phone Oanh Whitaker M.D. 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 Primary Care Physician Unavailable Payers Date Identification Numbers Payment Provider Subscriber Policy Number: [id number] [place] Schmid PayID: [id number] [address] [facility] [place] [address] Effective: 2014 Policy Number: [id number] /BS [place] P[place] Scarleturiel Schmid Expires: 2018 PayID: [id number] [address] [address] [place] [address] Policy Number: [id number] [place] Scar[place] Schmid PayID: [id number] [address] [address] [place] [address] Expires: 2018 Policy Number: [id number] [place] Ed[place] Schmid PayID: [id number] [address] [facility] [place] [address] Advance Directives Description No Information Available Problems Date Description Provider Status Onset: 03/04/2017 Type 2 diabetes mellitus John Latham DO MPH Active Family History Date Family Member(s) Observation Comments Father due to Auto Accident () [...] is a former smoker Smoking Status Reviewed: 09/03/18 Patient is a former smoker Allergies, Adverse Reactions, Alerts Date Description Reaction Status Severity Comments 03/04/2017 Celecoxib Active 03/04/2017 Testosterone Active 03/04/2017 Ceftriaxone Urticaria Active Medications Medication Date Status Form Strength Qnty SIG Indications Ordering Provider Elavil 09/10 Active Tablets 25mg 30tab si by Yeison s mouth John, every DO, MPH night at bedtime. as directed Oxycontin 07/09 Active Tab ER 12H 20mg 60tab si by Yeison Abuse-Det s mouth John, every 12 DO, MPH hours chronic pain patient Oxycodone HCL 05/25 Active Tablets 10mg 180ta si-2 by Yeison bs mouth John, every 6 to DO, MPH 8 hours as directed chronic pain patient Humalog Kwikpen Active Solution 100Unit/M 22 units Unknown /0000 Pen-Inject L daily Lantus Active Solution 100Unit/M si Unknown /0000 L units daily Lisinopril Active Tablets 10mg 1 by mouth Unknown /0000 every day Simvastatin Active Tablets 20mg 1 by mouth Unknown /0000 every day Doxycycline Active Tablets 100mg si by Unknown Hyclate /0000 mouth every 12 hours as directed Aspirin Active Tablets DR 81mg 1 by mouth Unknown /0000 daily One Daily For Active Tablets Men 50+ 1 by mouth Unknown Men 50+ Advanced /0000 daily Lyrica Active Capsules 50mg 90cap sipo Unknown /0000 s every 8 hours as directed chronic pain patient Pantoprazole Active Tablets DR 40mg Unknown Sodium /0000 Atorvastatin Active Tablets 40mg Unknown Calcium /0000 Cyclobenzaprine Active Tablets 10mg si by Unknown HCL /0000 mouth twice a day as directed Norvasc Active Tablets 5mg 1 by mouth Unknown /0000 every night at bedtime Bupropion HCL ER Active Tablets ER 150mg Unknown (SR) /0000 12HR Acidophilus Active Capsules Unknown Lactobacillus /0000 Nicotine Active Patches 24HR 14mg/24HR sig: apply Unknown /0000 1 patch every day Oxycontin 05/25 Hx Tab ER 12H 15mg 60tab take 1 Latham Abuse-Det s tablet by John, - mouth DO, MPH 07/09 every hours as directed chronic pain Morphine Sulfate 03/19 Hx Tablets ER 15mg 60tab si by Yeison, s mouth John, - every 12 DO, MPH 05/25 hours directed chronic pain patient Oxycodone HCL 03/04 Hx Concentrate 100mg/5ML 30ml sig: Yeison08/06-08/04 John, - milliliter DO, MPH 05/25 s sl mouth every 6 to 8 hours as directed chronic pain patient Morphine Sulfate 03/04 Hx Tablets 15mg 180ta si-2 by Yeison bs mouth John, - every 6 to DO, MPH 05/25 8 hours directed chronic pain patient Cymbalta Hx Caps DR Part 60mg si by Unknown /0000 mouth - twice 08/18 Oxycontin Hx Tab ER 12H 15mg take 1 Unknown /0000 Abuse-Det tablet by - mouth 03/04 every hours as directed chronic pain Oxycodone HCL Hx Tablets 15mg si by Unknown /0000 mouth - every 8 / hours directed chronic pain patient Tamsulosin HCL Hx Capsules 0.4mg 1 by mouth Unknown /0000 daily - 03/19 Bupropion HCL ER 0000 Hx Tablets ER 300mg 1 by mouth Unknown (XL) /0000 24HR daily - 08/18 Tamsulosin HCL 0000 Hx Capsules 0.4mg Unknown /0000 - 08/18 Immunizations Description No Information Available Vital Signs Date Vital Result Comment 09/03/2018 9:03am BP Systolic 140 mmHg BP Diastolic 88 mmHg Heart Rate 86 /min Respiratory Rate 20 /min Height 71 inches 5'11" Weight 199.00 lb Pain Level 8 Pain at this time. Pain Level With Medicine 7 on average with meds Pain Level Without Medicine 10 05/12 without meds BMI (Body Mass Index) 27.8 kg/m2 08/18/2018 10:20am BP Systolic 144 mmHg BP Diastolic 86 mmHg Heart Rate 82 /min Respiratory Rate 20 /min Height 71 inches 5'11" Weight 200.00 lb Pain Level 7 Pain at this time. Pain Level With Medicine 7 on average with meds Pain Level Without Medicine 10 05/12 without meds BMI (Body Mass Index) 27.9 kg/m2 08/06/2018 9:50am BP Systolic 140 mmHg BP [...] this time. Pain Level With Medicine 6 /10, on average with meds Pain Level Without [...] 5'11" Weight 214.00 lb Pain Level 8 8/10, Pain at this time. Pain Level With Medicine 6 6/10, on average with meds Pain Level Without Medicine 10 05/12 without meds BMI (Body Mass Index) 29.8 kg/m2 05/04/2017 10:44am BP Systolic 142 mmHg BP Diastolic 80 mmHg Heart Rate 76 /min Respiratory Rate 16 /min Height 71 inches 5'11" Weight 214.00 lb Pain Level 9 9/10, Pain at this time. Pain Level With [...] Information Available Procedures Date Code Description Status 08/06/2018 07049 Therapeutic, Prophylactic Or Diagnostic Injection Subq/Im Completed 07/08/2018 23714 Therapeutic, Prophylactic Or Diagnostic Injection Subq/Im Completed 06/07/2018 98436 Therapeutic, Prophylactic Or Diagnostic Injection Subq/Im Completed 04/09/2018 19427 Therapeutic, Prophylactic Or Diagnostic Injection Subq/Im Completed 03/12/2018 99940 Therapeutic, Prophylactic Or Diagnostic Injection Subq/Im Completed 02/09/2018 92125 Therapeutic, Prophylactic Or Diagnostic Injection Subq/Im Completed 01/11/2018 63312 Therapeutic, Prophylactic Or Diagnostic Injection Subq/Im Completed 12/11/2017 73144 Therapeutic, Prophylactic Or Diagnostic Injection Subq/Im Completed 11/11/2017 66859 Therapeutic, Prophylactic Or Diagnostic Injection Subq/Im Completed 10/12/2017 37631 Therapeutic, Prophylactic Or Diagnostic Injection Subq/Im Completed 09/10/2017 82730 Therapeutic, Prophylactic Or Diagnostic Injection Subq/Im Completed 08/13/2017 92059 Therapeutic, Prophylactic Or Diagnostic Injection Subq/Im Completed 07/09/2017 06937 Test Autonomic Nervous System, Sudomotor Completed 06/09/2017 12231 Therapeutic, Prophylactic Or Diagnostic Injection Subq/Im Completed Encounters Type Date Location Provider Dx Diagnosis Office Visit 08/18/2018 Main Office as John Latham G89.28 Other chronic 10:15a Of 09/03/13 DO, MPH postprocedural pain M54.5 Low back pain M43.26 Fusion of spine, lumbar region Z79.891 clarifier (current) use of opiate analgesic Z71.89 Other specified counseling Office Visit 08/06/2018 10:15a Main Office John Latham G89.28 Other chronic as Of 09/03/13 DO, MPH postprocedural pain M54.5 Low back pain M43.26 Fusion of spine, lumbar region Z71.89 Other specified counseling R53.83 Other fatigue Z79.891 clarifier (current) use of opiate analgesic Office Visit 07/08/2018 9:45a Main Office John Latham, G89.28 Other chronic as Of 09/03/13 DO, MPH postprocedural pain M54.5 Low back pain M43.26 Fusion of spine, lumbar region R53.83 Other fatigue Z79.891 prison (current) use of opiate analgesic Office Visit 06/07/2018 9:30a Main Office John Latham, G89.28 Other chronic as Of 09/03/13 DO, MPH postprocedural pain M43.24 Fusion of spine, thoracic region M43.26 Fusion of spine, lumbar region M54.5 Low back pain R53.83 Other fatigue Z79.891 clarifier (current) use of opiate analgesic Office Visit 05/07/2018 1:00p Main Office John Latham, G89.28 Other chronic as Of 09/03/13 DO, MPH postprocedural pain Z79.891 clarifier (current) use of opiate analgesic Office Visit 04/09/2018 9:00a Main Office John Latham, G89.28 Other chronic as Of 09/03/13 DO, MPH postprocedural pain M43.24 Fusion of spine, thoracic region M43.26 Fusion of spine, lumbar region M54.5 Low back pain R53.83 Other fatigue Z79.891 prison (current) use of opiate analgesic Office Visit 03/12/2018 9:00a Main Office John Latham, G89.28 Other chronic as Of 09/03/13 DO, MPH postprocedural pain M43.24 Fusion of spine, thoracic region M43.26 Fusion of spine, lumbar region M25.562 Pain in left knee R53.83 Other fatigue Z79.891 clarifier (current) use of opiate analgesic Office Visit 02/09/2018 9:00a Main Office John Latham G89.28 Other chronic as Of 09/03/13 DO, MPH postprocedural pain M43.24 Fusion of spine, thoracic region M43.26 Fusion of spine, lumbar region M54.5 Low back pain R53.83 Other fatigue Z79.891 prison (current) use of opiate analgesic Office Visit 01/11/2018 9:00a Main Office John Latham, G89.28 Other chronic as Of 09/03/13 DO, MPH postprocedural pain M43.26 Fusion of spine, lumbar region M43.24 Fusion of spine, thoracic region M54.5 Low back pain R53.83 Other fatigue Z79.891 prison (current) use of opiate analgesic Office Visit 12/11/2017 9:00a Main Office John Latham, G89.28 Other chronic as Of 09/03/13 DO, MPH postprocedural pain M43.24 Fusion of spine, thoracic region M43.26 Fusion of spine, lumbar region M54.5 Low back pain Z71.89 Other specified counseling R53.83 Other fatigue Z79.891 prison (current) use of opiate analgesic Office Visit 11/11/2017 9:00a Main Office John Latham, G89.28 Other chronic as Of 09/03/13 DO, MPH postprocedural pain M43.24 Fusion of spine, thoracic region M43.26 Fusion of spine, lumbar region R53.83 Other fatigue Z79.891 prison (current) use of opiate analgesic Office Visit 10/12/2017 9:00a Main Office John Latham, G89.28 Other chronic as Of 09/03/13 DO, MPH postprocedural pain M43.24 Fusion of spine, thoracic region M43.26 Fusion of spine, lumbar region R53.83 Other fatigue Z79.891 clarifier (current) use of opiate analgesic Office Visit 09/10/2017 2:00p Main Office John Latham, G89.28 Other chronic as Of 09/03/13 DO, MPH postprocedural pain M43.26 Fusion of spine, lumbar region M43.24 Fusion of spine, thoracic region Z79.891 clarifier (current) use of opiate analgesic Z13.89 Encounter for screening for other disorder R53.83 Other fatigue Office Visit 08/13/2017 2:00p Main Office John Latham G89.28 Other chronic as Of 09/03/13 DO, MPH postprocedural pain M43.26 Fusion of spine, lumbar region M43.24 Fusion of spine, thoracic region Z79.891 clarifier (current) use of opiate analgesic R53.83 Other fatigue Office Visit 07/09/2017 11:30a Main Office John Latham G89.28 Other chronic as Of 09/03/13 DO, MPH postprocedural pain M43.26 Fusion of spine, lumbar region M43.24 Fusion of spine, thoracic region N20.0 Calculus of kidney Z79.891 clarifier (current) use of opiate analgesic G90.3 Multi-system degeneration of the autonomic nervous system Office Visit 06/09/2017 9:15a Main Office John Latham G89.28 Other chronic as Of 09/03/13 DO, MPH postprocedural pain M43.26 Fusion of spine, lumbar region M43.24 Fusion of spine, thoracic region Z79.891 prison (current) use of opiate analgesic R53.83 Other fatigue Office Visit 05/25/2017 9:15a Main Office Isrrael Ghotra89.28 Other chronic as Of 09/03/13 [facility], [facility] postprocedural pain M54.5 Low back pain M43.26 Fusion of spine, lumbar region M43.24 Fusion of spine, thoracic region Z71.89 Other specified counseling Z79.891 prison (current) use of opiate analgesic Office Visit 05/04/2017 10:15a Main Office Isrrael Ghotra89.28 Other chronic as Of 09/03/13 [facility], [facility] postprocedural pain M54.5 Low back pain M79.605 Pain in left leg M79.604 Pain in right leg Z71.89 Other specified counseling Z79.891 clarifier (current) use of opiate analgesic Office Visit 04/02/2017 10:00a Main Office Isrrael Ghotra89.28 Other chronic as Of 09/03/13 [facility], [facility] postprocedural pain M79.604 Pain in right leg M79.605 Pain in left leg M96.1 Postlaminectomy syndrome, not elsewhere classified Z71.89 Other specified counseling Z79.891 clarifier (current) use of opiate analgesic Office Visit 03/19/2017 9:45a Main Office John Latham, G89.28 Other chronic as Of 09/03/13 PAT GOLDSMITH postprocedural pain M96.1 Postlaminectomy syndrome, not elsewhere classified M79.605 Pain in left leg M79.604 Pain in right leg Z79.891 clarifier (current) use of opiate analgesic Office Visit 03/04/2017 9:00a Main Office as John Latham G89.29 Other chronic Of 09/03/13 PAT GOLDSMITH pain M96.1 Postlaminectomy syndrome, not elsewhere classified M54.5 Low back pain E11.42 Type 2 diabetes mellitus with diabetic polyneuropathy M79.605 Pain in left leg M79.604 Pain in right leg G89.28 Other chronic postprocedural pain M25.562 Pain in left knee Z79.891 prison (current) use of opiate analgesic Plan of Treatment Future Appointment(s):11/03/2018 9:00 am - John Latham DO, MPH at Main Office as Of 09/03/1402 9:00 am - John Latham DO, MPH at Main Office as Of 09/03/1401 - John Latham DO, MPHG89.28 Other chronic postprocedural painComments:Chronic. Symptoms and complaints discussed and reviewed today. No significant changes in physical findings. Continue current medical pain management.M43.26 Fusion of spine, lumbar regionComments:Chronic. Symptoms and complaints discussed and reviewed today. No significant changes in physical findings. Continue current medical pain management.M54.5 Low back painComments:Chronic. Symptoms and complaints discussed and reviewed today.No changes in physical findings. Patient is stable and comfortable when current medical therapy is rendered.E11.42 Type 2 diabetes mellitus with diabetic polyneuropathyComments:Chronic. Symptoms and complaints discussed and reviewed today. No significant changes in physical findings. Continue current medical pain management. Followed by PCP. Will follow in regards to pain management, medications and associated treatments.I10 Essential (primary) hypertensionComments:Chronic. Symptoms and complaints discussed and reviewed today. No significant changes in physical findings or treatments. Continue current medical pain management. Followed by PCP and cardiology. Will follow in terms of pain management and associated medications. No changes in treatment reported at this time. Activity as tolerated. Will follow and refer when appropriate. Diet and exercise discussed.M79.605 Pain in left legComments: Chronic. Symptoms and complaints discussed and reviewed today. No significant changes in physical findings. Continue current medical pain management.E78.2 Mixed hyperlipidemiaComments:Followed by PCP. No changes in treatment reported at this time. Will follow in terms of medications and pain management.Z79.891 clarifier (current) use of opiate analgesicNew Labs:Urine Drug Screen, Ordered: 09/03/18Comments:Urine drug screen sample taken today to monitor opiate use and to monitor use of illicit substances.Will discuss results at next appointment.The following tests were ordered:6 AM, AMPH, NEETU, MING, BUP, CARIS , COCM, COT, ETG, FENT, MCSHSG, OPI, OXY, [...] controlled substances and is considered standard of care.~i_R53.83 Other fatigueComments:Symptoms and complaints discussed and reviewed today. No significant changes in physical findings. Continue current medical pain management. B12 injection administered after patient evaluated. 1ml IM for fatigue. (See Consent for injection-B12 document for lot number and expiration date.)AllComments:All above symptoms and complaints discussed as well [...] maintaining satisfactory side effect profile and minimizing tube dispatcher end-organ damage. Activity as toleratedContinue with PCP
[2018-10-08 11:59] VITALS: BP 142/68
--- NOTE | 2018-10-08 12:55 | UC ---
Respiratory Complaint HPI - HPI Summary HPI Summary: 63 yo male with nasal congestion andpost nasal drip x <24 hours mild myalgias cough chills fatigue no cp or sob - History of Current Complaint Chief Complaint: UCRespiratory Stated Complaint: ST,SINUS COMPLAINT Time Seen by Provider: 10/08/18 12:49 Hx Obtained From: Patient Onset/Duration: Sudden Onset, Lasting Hours Timing: Constant Severity Initially: Severe Severity Currently: Severe Pain Intensity: 8 Pain Scale Used: 0-10 Numeric Character: Cough: Nonproductive Aggravating Factors: Nothing Alleviating Factors: Nothing Associated Signs And Symptoms: Positive: Nasal Congestion, Sinus Discomfort - Allergies/Home Medications Allergies/Adverse Reactions: Allergies Allergy/AdvReac Type Severity Reaction Status Date / Time ceftriaxone Allergy Severe Itching Verified 10/08/18 11:52 PMH/Surg Hx/FS Hx/Imm Hx Previously Healthy: Yes Endocrine History: Diabetes, Dyslipidemia Cardiovascular History: Hypertension Psychological History: Depression Other History Of: Negative For: Anticoagulant Therapy - Surgical History Surgical History: Yes Surgery Procedure, Year, and Place: Total of 8 knee surgerys, total knee replacement, TKA, lumbar laminectomy c warren placement, bilateral cataract surgery , vasectomy, appendectomy, cervical disectomy - Family History Known Family History: Positive: Hypertension Negative: Other - negative anesthesia reaction - Social History Alcohol Use: None Substance Use Type: None Substance Use Comment - Amount & Last Used: RX OxyContin 80mg qd Smoking Status (MU): Heavy Every Day Tobacco Smoker Type: Cigarettes Amount Used/How Often: 1/2 PPD Have You Smoked in the Last Year: Yes - Immunization History Most Recent Influenza Vaccination: May 2017 Most Recent Tetanus Shot: unknown Most Recent Pneumonia Vaccination: 08/11/18 Review of Systems All Other Systems Reviewed And Are Negative: Yes Constitutional: Positive: Fever - jojo, Chills, Fatigue Eyes: Positive: Negative ENT: Positive: Nasal Discharge, Sinus Congestion, Sinus Pain/Tenderness Respiratory: Positive: Cough Cardiovascular: Positive: Negative Gastrointestinal: Positive: Negative Genitourinary: Positive: Negative Motor: Positive: Negative Neurovascular: Positive: Negative Musculoskeletal: Positive: Myalgia Neurological: Positive: Headache Psychological: Positive: Negative Physical Exam Triage Information Reviewed: Yes Appearance: Well-Appearing, No Pain Distress, Well-Nourished Vital Signs: Initial Vital Signs Temp 97.8 F 10/08/18 11:55 Pulse 97 10/08/18 11:55 Resp 20 10/08/18 11:55 BP 142/68 10/08/18 11:55 Pulse Ox 98 10/08/18 11:55 Vital Signs Reviewed: Yes Eyes: Positive: Conjunctiva Clear ENT: Positive: Nasal congestion, Nasal drainage Neck: Positive: Supple, Nontender, No Lymphadenopathy Respiratory: Positive: Lungs clear, Normal breath sounds, No respiratory distress, No accessory muscle use Cardiovascular: Positive: RRR, No Murmur Abdomen Description: Positive: Nontender, Soft Musculoskeletal: Positive: ROM Intact, No Edema Neurological: Positive: Alert Psychological Exam: Normal Skin Exam: Normal Respiratory Course/Dx - Course Course Of Treatment: influenza (-) - Differential Dx/Diagnosis Provider Diagnosis: Rhinosinusitis Discharge - Sign-Out/Discharge Documenting (check all that apply): Patient Departure All imaging exams completed and their final reports reviewed: No Studies - Discharge Plan Condition: Stable Disposition: HOME Prescriptions: Fluticasone NASAL SPRAY 50MCG* [Flonase NASAL SPRAY 50MCG*] 2 spray BOTH NARES BID #1 btl Referrals: Oanh Whitaker MD [Primary Care Provider] - Additional Instructions: saline nasal spray 2 sprays each nostril twice daily use flonase about 5 minutes after the nasal spray Afrin nasal spray (use for 3 days only) - Billing Disposition and Condition Condition: STABLE Disposition: Home
[2018-10-08 13:12] LABS: Influenza A Molecular NEGATIVE (Negative); Influenza B Molecular NEGATIVE (Negative)
== END 2018-10-08 13:22 | disposition home or self-care (01) ==
LOC: UCCORT 11:09
DX: J32.9 Chronic sinusitis, unspecified (principal); E11.9 Type 2 diabetes mellitus without complications; I10 Essential (primary) hypertension; F17.210 Nicotine dependence, cigarettes, uncomplicated; Z88.1 Allergy status to other antibiotic agents
CPT/HCPCS: 99212; G0463

== ENCOUNTER → 2019-05-23 10:43 | Day surgery (SDC) | payer MEDICARE, BC ==
[~2019-05-23 10:43] MED LIST: Acetaminophen TAB* 325 MG PO PRN; Buffered Lidocaine 1% SYRIN* 1 ML/SYRINGE INTRADERM ONE; Bupivacaine 0.25% SDV PF* 10 ML VIAL INJ ONE; Dexamethasone IV* 4 MG/ML 1 ML (4 MG) IV SLOW PU ONE; Dexamethasone IV* 4 MG/ML 1 ML (4 MG) ONE; DiMENhydriNATE IV* 50 MG/ML VIAL IV PUSH PRN; Famotidine IV* 10 MG/ML 2 ML (20 mg) ONE; Famotidine TAB* 20 MG ONE; Famotidine TAB* 20 MG PO ONE; Lactated Ringers 1000 ML Bag* 1,000 ML IV SCH; Lidocaine 2% PF * 5 ML VIAL ONE; Midazolam* 1 MG/ML 2 ML VIAL (2 MG) ONE; Naloxone* 0.4 MG/ML 1 ML VIAL IV PRN; Oxycodone IR 10 MG(NF) TAB PO ONE; Propofol* 10 MG/ML 20 ML BTL ONE; fentaNYL* 50 MCG/ML 2 ML VIAL (100 MCG VIAL) IV PRN; fentaNYL* 50 MCG/ML 5 ML VIAL (250 MCG VIAL) ONE; oxyCODONE SR TAB(*) 10 MG TAB.SR ONE; oxyCODONE SR TAB(*) 40 MG TAB.SR PO ONE; oxyCODONE TAB* 5 MG TAB ONE; oxyCODONE/Acetamin 5/325 MG* TAB PO PRN
[2019-05-23 16:55] VITALS: BP 153/83
--- NOTE | 2019-05-23 22:09 | OP ---
DATE OF OPERATION: 05/23/19 - SDS DATE OF : 53 SURGEON: Austen Car MD. EMERGENCY VEHICLE OPERATOR: JOHN Castaneda. ANESTHESIOLOGIST: Dr. Mcarthur. ANESTHESIA: Local MAC. PRE-OP DIAGNOSIS: Left dorsal ulnar middle finger mass. POST-OP DIAGNOSIS: Left dorsal ulnar middle finger mass. OPERATIVE PROCEDURE: Excision of left middle finger mass. INDICATIONS: Mr. Schmid has the aforementioned mass. We talked about the risks and benefits, and he wanted to have it excised. ESTIMATED BLOOD LOSS: 2 mL. COMPLICATIONS: None. FINDINGS: See above and below. It did have the appearance of a ganglion cyst. DESCRIPTION OF PROCEDURE: Mr. Schmid was seen in the preoperative holding area. We came back to the operating room. I performed a digital block. The arm was prepped and draped in the usual fashion and a time-out was performed. The arm was exsanguinated and a forearm based tourniquet was inflated to 225 mmHg. I made a 2 cm longitudinal incision over the mass. Dissection was carried down. Full-thickness flaps were raised off the mass and the mass was excised right off the paratenon. I went ahead and followed that back. It was either coming out the flexor tendon sheath in the palmar aspect or out the dorsal ulnar aspect of the PIP joint. I went ahead and cauterized the area with the Bovie. Once everything was looking good, we irrigated out the wound. The skin was closed with 4-0 nylon suture. A soft dressing was applied and he was taken to the recovery room in stable condition. [id number]/CPS #: [id number] MTDD
== END | disposition home or self-care (01) ==
LOC: OR 10:43
PROVIDERS: ATTEND Orthopaedic Surgery Hand Surgery
DX: M67.442 Ganglion, left hand (principal); I10 Essential (primary) hypertension; G47.33 Obstructive sleep apnea (adult) (pediatric); F17.201 Nicotine dependence, unspecified, in remission; E11.9 Type 2 diabetes mellitus without complications; Z79.4 Long term (current) use of insulin
CPT/HCPCS: 88304; A9270-GY; J1100; J2250; J2704; J3010; J3490

== ENCOUNTER → 2019-10-21 07:39 | Day surgery (SDC) | payer MEDICARE, BC ==
[~2019-10-21 07:39] MED LIST changes: -Acetaminophen TAB* 325 MG PO PRN; -Bupivacaine 0.25% SDV PF* 10 ML VIAL INJ ONE; -Dexamethasone IV* 4 MG/ML 1 ML (4 MG) IV SLOW PU ONE; -Dexamethasone IV* 4 MG/ML 1 ML (4 MG) ONE; -DiMENhydriNATE IV* 50 MG/ML VIAL IV PUSH PRN; +EPHEDrine (Pressors)* 50 MG/ML VIAL ONE; -Famotidine IV* 10 MG/ML 2 ML (20 mg) ONE; -Famotidine TAB* 20 MG ONE; -Famotidine TAB* 20 MG PO ONE; -Lidocaine 2% PF * 5 ML VIAL ONE; -Midazolam* 1 MG/ML 2 ML VIAL (2 MG) ONE; +Ondansetron INJ* 2 MG/ML VIAL ONE; -Oxycodone IR 10 MG(NF) TAB PO ONE; +Phenylephrine 40 MCG/ML SYRINGE ONE; -fentaNYL* 50 MCG/ML 2 ML VIAL (100 MCG VIAL) IV PRN; -fentaNYL* 50 MCG/ML 5 ML VIAL (250 MCG VIAL) ONE; -oxyCODONE SR TAB(*) 10 MG TAB.SR ONE; -oxyCODONE SR TAB(*) 40 MG TAB.SR PO ONE; -oxyCODONE TAB* 5 MG TAB ONE; -oxyCODONE/Acetamin 5/325 MG* TAB PO PRN
[2019-10-21 11:48] VITALS: BP 124/73
--- NOTE | 2019-11-09 16:14 | PRO ---
CC: Oanh Whitaker MD* DATE OF PROCEDURE: 10/21/2019. INDICATION FOR PROCEDURE: Positive FIT test. PROCEDURE PERFORMED: Complete colonoscopy to the cecum with cold snare and biopsy polypectomy of a total of eight polyps. MEDICATIONS GIVEN: Please see anesthesia record. DESCRIPTION OF PROCEDURE: After the colonoscopy procedure, including the risks , benefits, and alternatives, with the risks not limited to perforation, surgery , missed lesions, and/or were explained to the patient, written informed consent was obtained. IV medication was given and a rectal exam was performed. The rectal exam was unremarkable. The adult Olympus colonoscope was then inserted into the patient's rectum and advanced very carefully through the entirety of the colon and into the cecal base. The cecal base was carefully inspected and normal in appearance. The quality of the preparation was fair at best with seeds and some debris clogging the scope. The terminal ileal valve was identified and normal in appearance. A photograph was taken of the cecal cap. Over the next 15 minutes, the scope was carefully withdrawn inspecting the mucosa. In the descending colon, a polyp was removed with cold snare polypectomy. In the cecum, an additional polyp was removed with cold snare polypectomy. In the transverse colon, a polyp was removed with biopsy polypectomy in entirety. In the sigmoid, two additional polyps were removed with biopsy polypectomy and finally in the rectum, two additional polyps were removed with biopsy polypectomy. On retroflexion, grade one internal hemorrhoids were appreciated. The scope was then removed from the patient. He tolerated the procedure well. He returned to the recovery room in stable condition. IMPRESSION: 1. Complete colonoscopy to the cecum. 2. Cold snare and biopsy polypectomy of a total of eight polyps as above. 3. Fair prep at best. 4. Grade one internal hemorrhoids. RECOMMENDATIONS: Repeat colonoscopy in one to three years pending pathology and giving considerations of the fair prep at best. The etiology of the FIT test was likely hemorrhoids. [id number]/[facility] #: [id number] [facility]
== END | disposition home or self-care (01) ==
LOC: OR 07:39
PROVIDERS: ATTEND Internal Medicine Gastroenterology
DX: R19.5 Other fecal abnormalities (principal); D12.7 Benign neoplasm of rectosigmoid junction; D12.0 Benign neoplasm of cecum; D12.5 Benign neoplasm of sigmoid colon; E11.40 Type 2 diabetes mellitus with diabetic neuropathy, unspecified; E11.42 Type 2 diabetes mellitus with diabetic polyneuropathy; Z79.4 Long term (current) use of insulin; F17.210 Nicotine dependence, cigarettes, uncomplicated; I10 Essential (primary) hypertension; G47.33 Obstructive sleep apnea (adult) (pediatric); N40.1 Benign prostatic hyperplasia with lower urinary tract symptoms; N13.8 Other obstructive and reflux uropathy; F33.1 Major depressive disorder, recurrent, moderate; E27.8 Other specified disorders of adrenal gland; G89.4 Chronic pain syndrome; E78.2 Mixed hyperlipidemia; R37 Sexual dysfunction, unspecified; M54.5 Low back pain; D35.00 Benign neoplasm of unspecified adrenal gland; Z68.29 Body mass index [BMI] 29.0-29.9, adult
CPT/HCPCS: 88305; J2405; J2704

== ENCOUNTER 2022-12-11 06:20 | Observation (INO) ==
[~2022-12-11 06:20] MED LIST changes: +Buffered Lidocaine 1% SYRIN 1 ml INTRADERM ONE; -Buffered Lidocaine 1% SYRIN* 1 ML/SYRINGE INTRADERM ONE; -EPHEDrine (Pressors)* 50 MG/ML VIAL ONE; -Lactated Ringers 1000 ML Bag* 1,000 ML IV SCH; +Lactated Ringers 1000 ml BAG 1,000 ML IV SCH; -Naloxone* 0.4 MG/ML 1 ML VIAL IV PRN; -Ondansetron INJ* 2 MG/ML VIAL ONE; -Phenylephrine 40 MCG/ML SYRINGE ONE; -Propofol* 10 MG/ML 20 ML BTL ONE
[2022-12-11 06:49] LABS: ABS Basophils 0.1 10^3/uL (0.0-0.1); ABS Eosinophils 0.4 10^3/uL (0.0-0.5); ABS Lymphocytes 2.8 10^3/uL (1.0-4.8); ABS Monocytes 1.2 10^3/uL (0.0-1.1); ABS Neutrophils 8.3 10^3/uL (1.5-7.6); ABS Nucleated RBC 0.01 10^3/ul; Eosinophil % 2.9 %; Hematocrit 44.9 % (38-53); Hemoglobin 15.4 g/dL (13.2-16.3); Lymphocyte % 22.1 %; Mean Corpuscular Hemoglobin 31.1 pg (27-33); Mean Corpuscular Hgb Conc 34.3 g/dL (31-36); Mean Corpuscular Volume 90.7 fL (80-97); Mean Platelet Volume 8.8 fL (7.5-11.2); Nucleated Red Blood Cells % 0.1 /100 WBC (0.0-0.4); Platelet Count 284 10^3/uL (150-450); Red Blood Count 4.95 10^6/uL (4.06-5.63); Red Cell Distribution Width 13.8 % (12-17); White Blood Count 12.8 10^3/uL (3.6-10.2)
[2022-12-11] MEDS ORDERED: Tranexamic Acid 1,000 MG in NS 0.9% 50 ML IV ONE (07:00)
[2022-12-11] MEDS ORDERED: ceFAZolin 2 GM in NS PREMIX 2 GM/100 ML BAG IVPB ONE (07:16)
[2022-12-11 07:25] LABS: Rapid COVID-19 Molecular Undetected (Undetected)
[2022-12-11] MEDS ORDERED: Midazolam 2 mg/2 ml VIAL 1 mg/ml 2 ml VIAL (2 mg) ONE (08:27)
[2022-12-11] MEDS ORDERED: fentaNYL 100 mcg/2 ml 50 MCG/ML VIAL ONE ×3 (08:27→13:11)
[2022-12-11] MEDS ORDERED: Lidocaine 2% PF 5 ML VIAL ONE (08:27)
[2022-12-11] MEDS ORDERED: Propofol 10 MG/ML 20 ML BTL ONE (08:35)
[2022-12-11] MEDS ORDERED: Rocuronium 50 mg VIAL 10 mg/ml 5 ml VIAL (50 mg) ONE ×2 (08:37→10:19)
[2022-12-11] MEDS ORDERED: Naloxone 0.4 mg VIAL 0.4 mg/ml 1 ml VIAL IV PRN (09:05)
[2022-12-11] MEDS ORDERED: Acetaminophen IV 1 GM/100ML 1,000 MG/100 ML BAG IV PRN (09:05)
[2022-12-11] MEDS ORDERED: HYDROmorphone 1 MG/1 ML SYRINGE IV PRN (09:05)
[2022-12-11] MEDS ORDERED: Ondansetron 4 mg VIAL 2 MG/ML 2 ml VIAL IV PRN ×2 (09:05→12:35)
[2022-12-11] MEDS ORDERED: Dexamethasone IV 4 MG/ML VIAL 1 ml VIAL ONE (10:10)
[2022-12-11] MEDS ORDERED: Ondansetron 4 mg VIAL 2 MG/ML 2 ml VIAL ONE (10:10)
[2022-12-11] MEDS ORDERED: Acetaminophen IV 1 GM/100ML 1,000 MG/100 ML BAG IV ONE (10:11)
[2022-12-11] MEDS ORDERED: HYDROmorphone 0.5 MG/0.5 ML SYRINGE ONE ×4 (10:43→12:24)
[2022-12-11] MEDS ORDERED: Ketamine HCL 50 mg/ml 10 ml VIAL (500 MG) ONE (10:52)
[2022-12-11] MEDS ORDERED: ROPIVACAINE 5 MG/ML 30 ML BTL (0.5%) ONE (11:17)
[2022-12-11] MEDS ORDERED: Morphine 2 MG/ML SYRINGE IV PRN (12:35)
[2022-12-11] MEDS ORDERED: Magnesium Hydroxide LIQ 30 ML UDC PO PRN (12:35)
[2022-12-11] MEDS ORDERED: Ondansetron ODT 4 mg TAB 4 MG TAB PO PRN (12:35)
[2022-12-11] MEDS ORDERED: Lactulose 30 ml UDC PO PRN (12:35)
[2022-12-11] MEDS: fentaNYL 100 mcg/2 ml 50 MCG/ML VIAL IV PRN ×4 (13:11→14:01)
[2022-12-11] MEDS ORDERED: HYDROmorphone 1 MG/1 ML SYRINGE ONE (14:15)
[2022-12-11] MEDS ORDERED: Phenylephrine IV 10 MG/ML 1 ml VIAL ONE (14:34)
[2022-12-11] MEDS: Lactated Ringers 1000 ml BAG 1,000 ML IV SCH (15:35)
[2022-12-11] MEDS ORDERED: Dextrose 50% Syringe 50 ml 25 GM/50 ML SYRINGE IV PUSH PRN (15:57)
[2022-12-11] MEDS ORDERED: Nicotine GUM 4MG FRUIT FLAVOR PO PRN (16:09)
[2022-12-11] MEDS: ceFAZolin 1 GM ADVAN 1 GM in NS 0.9% 50 ML 50 ML IVPB SCH (19:38)
[2022-12-11] MEDS ORDERED: Buprenorp/Nalox 8-2 MG SL TAB SL SCH (21:00)
[2022-12-11] MEDS: Magnesium Hydroxide LIQ 30 ML UDC PO SCH (21:24)
[2022-12-12] MEDS: Lactated Ringers 1000 ml BAG 1,000 ML IV SCH (01:43)
[2022-12-12] MEDS: ceFAZolin 1 GM ADVAN 1 GM in NS 0.9% 50 ML 50 ML IVPB SCH ×2 (02:14→09:44)
[2022-12-12 06:45] LABS: Hematocrit 35.9 % (38-53); Hemoglobin 11.9 g/dL (13.2-16.3); Mean Platelet Volume 9.4 fL (7.5-11.2); Platelet Count 214 10^3/uL (150-450)
[2022-12-12 06:55] LABS: Calcium 8.7 mg/dL (8.6-10.3); Creatinine, Serum 0.83 mg/dL (0.67-1.17); Potassium 4.1 mmol/L (3.5-5.0); eGFR CKD-EPI 95.3 (>60)
[2022-12-12] MEDS: Magnesium Hydroxide LIQ 30 ML UDC PO SCH (08:11)
[2022-12-12] MEDS ORDERED: Aspirin EC 81 mg TAB.EC (enteric coated) PO SCH (09:00)
[2022-12-12] MEDS ORDERED: Vitamin THERAPEUTIC TAB PO SCH (09:00)
[2022-12-12] MEDS ORDERED: Insulin GLARGINE 100 un/ml 10 ml VIAL SUBCUT SCH (09:00)
[2022-12-12] MEDS ORDERED: Buprenorp/Nalox 8-2 MG SL TAB SL SCH (09:00)
[2022-12-12 11:33] VITALS: BP 133/65
== END 2022-12-12 14:25 | disposition home or self-care (01) ==
LOC: AA 06:20 → INTOOBSV 06:20 → SSU 12:35
PROVIDERS: ADMIT Orthopaedic Surgery Adult Reconstructive Orthopaedic Surgery; ATTEND Orthopaedic Surgery Adult Reconstructive Orthopaedic Surgery